=== PATIENT | female | born 1975 | race Caucasian/White ===

== ENCOUNTER 2017-06-14 10:44 | Emergency (ER) | payer MEDICAID, MEDICARE ==
[2017-06-14 10:59] VITALS: BP 131/90
--- NOTE | 2017-06-14 11:14 | EDM.PDOC ---
ED HPI GENERAL MEDICAL PROBLEM - General Chief Complaint: General Stated Complaint: COUGHING UP BLOOD Time Seen by Provider: 06/14/17 11:14 Source of Information: Reports: Patient History Limitations: Reports: No Limitations - History of Present Illness INITIAL COMMENTS - FREE TEXT/NARRATIVE: 41-year-old female presents for evaluation and treatment of a productive cough. Patient reports she is primarily concerned about the cough. Reports that this started 2 weeks ago. She reports that she initially wasn't very concerned as she is a smoker. Normally smokes about half pack a day. Reports that she recently lost her [id number] and has increased now to about a pack a day. She since cut back down to half a pack a day but reports that the coughing continues. She reports that she has been coughing up mucus. Today she became concerned when she coughed up blood in the mucus. no hemoptysis since this earlier incident. Patient denies any fevers. Additionally she reports headaches , body aches and dizziness. She denies any lightheadedness or syncope. Patient also complains of a sore throat. Sates that feels like she is "swallowing razor blades ". She states that she cannot swallow. She has no appetite. Patient also reports she has been having diarrhea about 4 times a day. No melena or hematochezia that she has appreciated. She reports lower abdominal pain, nausea and vomiting. Reports she's vomited a few times over the last 2 weeks. States that she has a history of inflammatory bowel disease. She is also a pain contract. Reports that she frequently alternates between diarrhea and constipation. She did stop taking her magnesium recently due to the recent diarrhea but this has not helped the diarrhea. She is also on Lortabs for chronic neck pain and fibromyalgia. She also reports "kidney pain". She states it feels like she was "kicked by a horse ". No dysuria or hematuria. No recent antibiotic usage. No recent travel. Generalized Pain Score (Numeric/FACES): 8 - Related Data Allergies Allergy/AdvReac Type Severity Reaction Status Date / Time quetiapine fumarate Allergy Agitation Verified 06/14/17 10:59 [From Seroquel] varenicline tartrate Allergy Hallucinati Verified 06/14/17 10:59 [From Chantix] ons propanolol Allergy Hallucinati Uncoded 06/14/17 10:59 ons Home Meds: Home Meds Albuterol Inhaler. 2 puff INH ASDIRECTED 02/27/14 [History] Ibuprofen. 800 mg PO TID 02/27/14 [History] Omeprazole. 20 mg PO DAILY 02/27/14 [History] Rizatriptan. 0 mg PO ASDIRECTED 02/27/14 [History] Voltaren. 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 History: partial hysterectomy Musculoskeletal History: Reports: Neck Pain, Chronic Other Musculoskeletal History: fibromyalgia Neurological History: Reports: Migraines Psychiatric History: Reports: Anxiety, Depression - Infectious Disease History Infectious Disease History: Reports: None - Past Surgical History HEENT Surgical History: Reports: Adenoidectomy, Oral Surgery, Tonsillectomy Social & Family History - Family History Family Medical History: Noncontributory - Tobacco Use Smoking Status *Q: Current Every Day Smoker Years of Tobacco use: 30 Packs/Tins Daily: 0.5 Used Tobacco, but Quit: No Second Hand Smoke Exposure: No - Caffeine Use Caffeine Use: Reports: Coffee, Energy Drinks, Soda, Tea - Alcohol Use Days Per Week of Alcohol Use: 0 - Recreational Drug Use Recreational Drug Use: No ED ROS GENERAL - Review of Systems Review Of Systems: See Below Constitutional: Reports: Decreased Appetite, Other (reports bodyaches). Denies : Fever HEENT: Reports: Throat Pain Respiratory: Reports: Cough, Sputum, Hemoptysis Cardiovascular: Denies: Lightheadedness, Syncope GI/Abdominal: Reports: Abdominal Pain (lower abdomen, bilateral), Diarrhea, Decreased Appetite, Difficulty Swallowing, Nausea, Vomiting (reports a couple times over the last 2 weeks). Denies: Hematochezia, Melena : Denies: Dysuria, Flank Pain, Hematuria Musculoskeletal: Reports: Back Pain (reports kidney pain, states she feels like she was kicked by a horse)) Neurological: Reports: Headache. Denies: Syncope ED EXAM, GENERAL - Physical Exam Exam: See Below Exam Limited By: No Limitations General Appearance: Alert, WD/WN, No Apparent Distress Eye Exam: Bilateral Eye: Normal Inspection Ears: Normal External Exam, Normal Canal, Hearing Grossly Normal, Normal TMs Ear Exam: Bilateral Ear: Auricle Normal, Canal Normal, TM normal Nose: Normal Inspection Throat/Mouth: Normal Inspection, Normal Lips, Normal Teeth, Normal Gums, Normal Oropharynx, Normal Voice, No Airway Compromise Neck: Normal Inspection Respiratory/Chest: No Respiratory Distress, Lungs Clear, Normal Breath Sounds Cardiovascular: Normal Peripheral Pulses, Regular Rate, Rhythm, No Murmur GI/Abdominal: Normal Bowel Sounds, Soft, Non-Tender Neurological: Alert, Oriented, Normal Cognition Psychiatric: Normal Affect, Normal Mood Skin Exam: Warm, Dry, Normal Color Course - Vital Signs Last Recorded V/S: Last Vital Signs Temp 36.8 C 06/14/17 13:12 Pulse 81 06/14/17 13:12 Resp 18 06/14/17 13:12 BP 131/90 06/14/17 10:53 Pulse Ox 98 06/14/17 13:12 - Orders/Labs/Meds Orders: Active Orders 24 hr Category Date Time Status CULTURE STREP A CONFIRMATION [] Stat Lab 06/14/17 11:15 Results Rapid Strep w/culture conf [STREP SCRN A RAPID W CULT Lab 06/14/17 11:15 Results CONF] [] Stat Labs: Laboratory Tests 06/14/17 06/14/17 06/14/17 Range/Units 11:35 11:45 11:45 WBC 14.62 H (3.98-10.04) K/mm3 RBC 4.54 (3.98-5.22) M/mm3 Hgb 14.2 (11.2-15.7) gm/L Hct 42.8 (34.1-44.9) % MCV 94.3 (79.4-94.8) fl MCH 31.3 (25.6-32.2) pg MCHC 33.2 (32.2-35.5) g/dl RDW Std Deviation 47.1 H (36.4-46.3) fL Plt Count 392 H (182-369) K/mm3 MPV 9.1 L (9.4-12.3) fl Neut % (Auto) 74.1 H (34.0-71.1) % Lymph % (Auto) 17.4 L (19.3-51.7) % [place] % (Auto) 6.3 (4.7-12.5) % Eos % (Auto) 1.4 (0.7-5.8) Baso % (Auto) 0.5 (0.1-1.2) % Neut # (Auto) 10.84 H (1.56-6.13) K/mm3 Lymph # (Auto) 2.54 (1.18-3.74) K/mm3 [place] # (Auto) 0.92 H (0.24-0.36) K/mm3 Eos # (Auto) 0.21 (0.04-0.36) K/mm3 Baso # (Auto) 0.07 (0.01-0.08) K/mm3 Sodium 143 (136-145) mEq/L Potassium 4.9 (3.5-5.1) mEq/L Chloride 107 (98-107) mEq/L Carbon Dioxide 28 (21-32) mEq/L Anion Gap 12.9 (5-15) BUN 16 (7-18) mg/dL Creatinine 1.1 H (0.55-1.02) mg/dL Est Cr Clr Drug Dosing 65.45 mL/min Estimated GFR (MDRD) 55 (>60) mL/min BUN/Creatinine Ratio 14.5 (14-18) Glucose 95 (74-106) mg/dL Calcium 9.3 (8.5-10.1) mg/dL Total Bilirubin 0.3 (0.2-1.0) mg/dL AST 10 L (15-37) U/L ALT 19 (14-59) U/L Alkaline Phosphatase 69 (46-116) U/L C-Reactive Protein 1.3 H* (<1.0) mg/dL Total Protein 6.9 (6.4-8.2) g/dl Albumin 3.6 (3.4-5.0) g/dl Globulin 3.3 gm/dL Albumin/Globulin Ratio 1.1 (1-2) Urine Color Yellow (Yellow) Urine Appearance Clear (Clear) Urine pH 7.5 (5.0-8.0) Ur Specific [place] 1.020 (1.005-1.030) Urine Protein Negative (Negative) Urine Glucose (UA) Negative (Negative) Urine Ketones Negative (Negative) Urine Occult Blood Negative (Negative) Urine Nitrite Negative (Negative) Urine Bilirubin Negative (Negative) Urine Urobilinogen 0.2 (0.2-1.0) Ur Leukocyte Esterase Negative (Negative) Urine RBC Not seen (0-5) /hpf Urine WBC Not seen (0-5) /hpf Ur Epithelial Cells 0-5 (0-5) /hpf Urine Bacteria Not seen (FEW) /hpf Urine Mucus Not seen (FEW) /hpf Meds: Medications Discontinued Medications Generic Name Dose Route Start Last Admin Trade Name Freq PRN Reason Stop Dose Admin Al Hydroxide/Mg Hydroxide 30 0 ml 06/14/17 11:28 06/14/17 11:43 ml/ Lidocaine HCl 15 ml PO 06/14/17 11:29 45 ml ONETIME ONE Administration Ondansetron HCl 4 mg 06/14/17 11:28 06/14/17 11:41 Zofran Odt PO 06/14/17 11:29 4 mg ONETIME ONE Administration - Radiology Interpretation Free Text/Narrative:: Chest [address] Walker: Heart size and mediastinum are normal. Lungs are clear with the exception of a slight linear density seen within either the right middle lobe or lingula on the lateral view compatible with slight atelectasis. Slight scoliosis is present. - Re-Assessments/Exams Free Text/Narrative Re-Assessment/Exam: 06/14/17 13:00 I reviewed the x-ray and lab results with the patient. Her strep is negative. Her flu is negative. She did just recently receive a cortisone injection to the neck and shoulders. This could be why her white blood cell count is mildly elevated. I will treat her for bronchitis since it has been 2 weeks of a cough and her symptoms are worsening. We'll start her on azithromycin. Follow-up next week with PCP. Discharge instructions as documented. Departure - Departure Time of Disposition: 13:01 Disposition: Home, Self-Care 01 Condition: Good Clinical Impression: Bronchitis - Discharge Information Prescriptions: Azithromycin [IJD: Azithromycin] 250 mg PO DAILY #6 tab Instructions: Acute Bronchitis, [id number] Referrals: Sorin,Wanda M, DO [Primary Care Provider] - Forms: ED Department Discharge Additional Instructions: Take the azithromycin as prescribed. 2 tabs on day 1 followed by 1 tablet day 2 through 5. Take this medication with food. Follow up with your primary care provider next week for recheck of your symptoms. Continue take the Zofran you have at home for nausea. Recommend taking a probiotic to help reduce the diarrhea. make sure you are drinking plenty of fluids. Recommend bland diet to help reduce the diarrhea. [place] diet recommendations include bread, rice, applesauce , toast, egg whites, soup, etc. Please return to the ER if your symptoms change or worsen. - My Orders Last 24 Hours: My Active Orders 06/14/17 11:15 CULTURE STREP A CONFIRMATION [] Stat Rapid Strep w/culture conf [STREP SCRN A RAPID W CULT CONF] [] Stat - Assessment/Plan Last 24 Hours: My Active Orders 06/14/17 11:15 CULTURE STREP A CONFIRMATION [RM] Stat Rapid Strep w/culture conf [STREP SCRN A RAPID W CULT CONF] [] Stat
[2017-06-14] MEDS ORDERED: Alum Hydrox/Mag Hydrox/Simeth 30 ML, Lidocaine 2% 15 ML PO ONE ×2 (11:28)
[2017-06-14] MEDS ORDERED: Ondansetron 4 MG Tab.DIS PO ONE (11:28)
--- NOTE | 2017-06-14 12:00 | CR ---
Chest: Two views of the chest were obtained. Comparison: Previous portable chest x-ray of 03/08/12. Heart size and mediastinum are normal. Lungs are clear with the exception of a slight linear density seen within either the right middle lobe or lingula on the lateral view compatible with slight atelectasis. Slight scoliosis is present. Impression: 1. Incidental findings. Nothing acute is seen on two-view chest x-ray. Diagnostic code #2
== END 2017-06-14 13:12 | disposition home or self-care (01) ==
LOC: JD.ED 10:44
DX: J40 Bronchitis, not specified as acute or chronic (principal); F17.210 Nicotine dependence, cigarettes, uncomplicated; Z88.8 Allergy status to other drugs, medicaments and biological substances; Z79.899 Other long term (current) drug therapy
CPT/HCPCS: 36415; 71020; 80053; 81001; 85025; 86140; 87081; 87430; 87804; 99284; A9270; 99283

== ENCOUNTER 2018-04-07 17:26 | Emergency (ER) | payer MEDICARE, MEDICAID ==
[2018-04-07 17:38] VITALS: BP 100/70
[2018-04-07] MEDS ORDERED: Acetaminophen 325 MG Tab PO ONE (17:50)
--- NOTE | 2018-04-07 18:30 | EDM.PDOC ---
ED HPI GENERAL MEDICAL PROBLEM - General Chief Complaint: General Stated Complaint: FELL DOWN STEPS MIGHT HAVE BROKEN LEFT/RIGHT FOOT Time Seen by Provider: 04/07/18 17:42 Source of Information: Reports: Patient, RN Notes Reviewed - History of Present Illness INITIAL COMMENTS - FREE TEXT/NARRATIVE: 42-year-old female lost her balance going down some steps. She states she fell down a full flight of about 12 steps injuring right foot and left wrist. She also did hit her right forehead. Was no LOC but she may have been dazed briefly. Does have mild frontal headache at this time. Very mild neck soreness. No major back discomfort. No chest pain or difficulty breathing. There's been no nausea or vomiting. This occurred about 1-1/2 hours ago Left Wrist Pain Score (Numeric/FACES): 10 Right Feet Pain Score (Numeric/FACES): 10 - Related Data Allergies Allergy/AdvReac Type Severity Reaction Status Date / Time quetiapine fumarate Allergy Agitation Verified 04/07/18 17:38 [From Seroquel] varenicline tartrate Allergy Hallucinati Verified 04/07/18 17:38 [From Chantix] ons propanolol Allergy Hallucinati Uncoded 04/07/18 17:38 ons Home Meds: Home Meds Albuterol Inhaler. 2 puff INH ASDIRECTED 02/27/14 [History] Ibuprofen. 800 mg PO TID 02/27/14 [History] Omeprazole. 20 mg PO DAILY 02/27/14 [History] Rizatriptan. 0 mg PO ASDIRECTED 02/27/14 [History] Voltaren. 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 Musculoskeletal History: Reports: Neck Pain, Chronic Other Musculoskeletal History: fibromyalgia Neurological History: Reports: Migraines Psychiatric History: Reports: Anxiety, Depression - Infectious Disease History Infectious Disease History: Reports: None - Past Surgical History HEENT Surgical History: Reports: Adenoidectomy, Oral Surgery, Tonsillectomy Social & Family History - Family History Family Medical History: Noncontributory - Tobacco Use Smoking Status *Q: Current Every Day Smoker Years of Tobacco use: 25 Packs/Tins Daily: 0.5 - Caffeine Use Caffeine Use: Reports: Coffee, Soda - Recreational Drug Use Recreational Drug Use: No ED ROS GENERAL - Review of Systems Review Of Systems: See Below Constitutional: Reports: No Symptoms HEENT: Reports: Other (There is mild bruising of the upper for head) Respiratory: Denies: Shortness of Breath, Pleuritic Chest Pain Cardiovascular: Denies: Chest Pain GI/Abdominal: Denies: Abdominal Pain, Nausea, Vomiting Musculoskeletal: Reports: Neck Pain (For mild soreness posterior neck), Joint Pain (Left wrist and right foot). Denies: Shoulder Pain, Back Pain Skin: Reports: Bruising (Mild bruising upper forehead) Neurological: Reports: Headache (Her mild headache), Difficulty Walking. Denies : Trouble Speaking ED EXAM, GENERAL - Physical Exam Exam: See Below General Appearance: Alert, Mild Distress Eye Exam: Bilateral Eye: PERRL Ears: Normal External Exam Nose: Normal Inspection Throat/Mouth: Normal Inspection Head: Other (Very slight bruising of the upper forehead, no bony tenderness of the head or face) Neck: Supple, Other (Very minimal tenderness posterior neck, minimal soreness with motion) Respiratory/Chest: No Respiratory Distress, Lungs Clear, Normal Breath Sounds Cardiovascular: Regular Rate, Rhythm Back Exam: Other (No bruising or swelling visible). No: Paraspinal Tenderness, Vertebral Tenderness Extremities: Joint Swelling (Is very mild swelling of the left wrist, mild to moderate tenderness of the left wrist both dorsally and volar aspect as well, pain with motion of the wrist, no visible deformity), Other (There is tenderness very mild swelling and bruising of the medial mid right foot, foot otherwise nontender) Neurological: No Motor/Sensory Deficits Skin Exam: Warm, Dry Course - Vital Signs Last Recorded V/S: Last Vital Signs Temp 97.3 F 04/07/18 17:33 Pulse 95 04/07/18 17:33 Resp 16 04/07/18 17:33 BP 100/70 04/07/18 17:33 Pulse Ox 97 04/07/18 17:33 - Orders/Labs/Meds Orders: Active Orders 24 hr Category Date Time Status Foot Comp Min 3V Rt [CR] Stat Exams 04/07/18 17:50 Taken Wrist Comp Min 3V Lt [CR] Stat Exams 04/07/18 17:50 Taken Meds: Medications Discontinued Medications Generic Name Dose Route Start Last Admin Trade Name Chay PRN Reason Stop Dose Admin Acetaminophen 975 mg 04/07/18 17:50 04/07/18 17:56 Tylenol PO 04/07/18 17:51 975 mg NOW ONE Administration - Re-Assessments/Exams Free Text/Narrative Re-Assessment/Exam: 04/07/18 19:01 X-rays of foot and wrist are negative for fracture, head CT not clinically indicated at this time Departure - Departure Time of Disposition: 18:46 Disposition: Home, Self-Care 01 Condition: Fair Clinical Impression: Fall Qualifiers: Encounter type: initial encounter Qualified Code(s): W19.XXXA - Unspecified fall, initial encounter Contusion of left wrist Qualifiers: Encounter type: initial encounter Qualified Code(s): S60.212A - Contusion of left wrist, initial encounter Contusion of right foot Qualifiers: Encounter type: initial encounter Qualified Code(s): S90.31XA - Contusion of right foot, initial encounter - Discharge Information Referrals: Meghan Bradley PA-C [Primary Care Provider] - Forms: ED Department Discharge Additional Instructions: Velcro wrist splint left wrist for comfort and protection, Miguel wrap right foot, use cane as needed for ambulation until pain right foot resolving, icd packs and elevation as needed for swelling, you may take hydrocodone previously prescribed if needed for severe pain. You may also take Aleve 2-3 times daily for additional pain relief and also for inflammation, as symptoms improve then alternate Aleve and Tylenol as needed. Do not take Tylenol and hydrocodone at the same time. Follow-up clinic if not getting back to normal within 5-7 days as expected. - My Orders Last 24 Hours: My Active Orders 04/07/18 17:50 Foot Comp Min 3V Rt [CR] Stat Wrist Comp Min 3V Lt [CR] Stat - Assessment/Plan Last 24 Hours: My Active Orders 04/07/18 17:50 Foot Comp Min 3V Rt [CR] Stat Wrist Comp Min 3V Lt [CR] Stat
--- NOTE | 2018-04-08 07:41 | CR ---
Right foot: Four views of the right foot were obtained. Comparison: No prior study. Joint spaces are preserved. No fracture, dislocation or other bony abnormality is seen. Impression: 1. No abnormality is seen on right foot exam. Diagnostic code #1
--- NOTE | 2018-04-08 07:41 | CR ---
Left wrist: Four views of the left wrist were obtained. Comparison: No prior wrist exam. Soft tissue swelling is identified. Joint spaces are preserved. No fracture, dislocation or other bony abnormality is seen. Impression: 1. Soft tissue swelling. 2. No bony abnormality is seen on left wrist exam. Diagnostic code #2
== END 2018-04-07 18:54 | disposition home or self-care (01) ==
LOC: JD.ED 17:26
DX: S60.212A Contusion of left wrist, initial encounter (principal); S90.31XA Contusion of right foot, initial encounter; F17.210 Nicotine dependence, cigarettes, uncomplicated; Z79.899 Other long term (current) drug therapy; Z88.8 Allergy status to other drugs, medicaments and biological substances; W10.9XXA Fall (on) (from) unspecified stairs and steps, initial encounter
CPT/HCPCS: 73110; 73630; 99283; A9270

== ENCOUNTER 2018-04-14 11:56 | Emergency (ER) | payer MEDICARE, MEDICAID ==
[2018-04-14 12:06] VITALS: BP 126/58
--- NOTE | 2018-04-14 12:27 | EDM.PDOC ---
ED HPI GENERAL MEDICAL PROBLEM - General Chief Complaint: Neurological Problem Stated Complaint: NEUROLOGICAL ISSUES/CONFUSION Time Seen by Provider: 04/14/18 12:04 Source of Information: Reports: Patient History Limitations: Reports: No Limitations - History of Present Illness INITIAL COMMENTS - FREE TEXT/NARRATIVE: Patient is a 42-year-old female presents ED complaining of intermittent confusion and seeing spots at times. With a few episodes of emesis. Last vomiting episode was yesterday. Patient fell down a few stairs approximately 5 days ago. She hit her head causing bruising to her forehead. There was no loss of consciousness. She was seen in the ER and diagnosed with a concussion. Since the injury she's had no unusual headaches. She does have history of chronic migraines and has taken Imitrex which normally resolves headaches. She has no headache with admission to the ED. She is concerned about the vomiting, intermittent vision changes, confusion, maybe related to worsening concussion. She is on no blood thinners and oral control. She denies being . right ankle Pain Score (Numeric/FACES): 3 - Related Data Allergies Allergy/AdvReac Type Severity Reaction Status Date / Time quetiapine fumarate Allergy Agitation Verified 04/14/18 12:06 [From Seroquel] varenicline tartrate Allergy Hallucinati Verified 04/14/18 12:06 [From Chantix] ons propanolol Allergy Hallucinati Uncoded 04/14/18 12:06 ons Home Meds: Home Meds Albuterol Inhaler. 2 puff INH ASDIRECTED 02/27/14 [History] Ibuprofen. 800 mg PO TID 02/27/14 [History] Omeprazole. 20 mg PO DAILY 02/27/14 [History] Rizatriptan. 0 mg PO ASDIRECTED 02/27/14 [History] Voltaren. 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 Musculoskeletal History: Reports: Neck Pain, Chronic Other Musculoskeletal History: fibromyalgia Neurological History: Reports: Migraines Psychiatric History: Reports: Anxiety, Depression - Infectious Disease History Infectious Disease History: Reports: None - Past Surgical History HEENT Surgical History: Reports: Adenoidectomy, Oral Surgery, Tonsillectomy Social & Family History - Family History Family Medical History: Noncontributory - Tobacco Use Smoking Status *Q: Current Every Day Smoker Years of Tobacco use: 20 Packs/Tins Daily: 0.5 - Caffeine Use Caffeine Use: Reports: Coffee - Recreational Drug Use Recreational Drug Use: No ED ROS GENERAL - Review of Systems Review Of Systems: ROS reveals no pertinent complaints other than HPI. ED EXAM, NEURO - Physical Exam Exam: See Below Exam Limited By: No Limitations General Appearance: Alert, WD/WN, No Apparent Distress Eye Exam: Bilateral Eye: EOMI, Nystagmus (non noted), PERRL Ears: Hearing Grossly Normal Nose: Normal Inspection, Normal Mucosa Throat/Mouth: Normal Inspection, Normal Oropharynx, Normal Voice, No Airway Compromise Head Exam: Atraumatic, Normocephalic Neck: Normal Inspection, Supple, Full Range of Motion, Tender Lateral (right side). No: Lymphadenopathy (L), Lymphadenopathy (R), Tender Midline Respiratory/Chest: No Respiratory Distress, Lungs Clear, Normal Breath Sounds, No Accessory Muscle Use, Chest Non-Tender, Decreased Breath Sounds Cardiovascular: Normal Peripheral Pulses, Regular Rate, Rhythm GI/Abdominal: Normal Bowel Sounds, Soft, Non-Tender, No Organomegaly, No Distention Neurological: Alert, Normal Mood/Affect, Normal Dorsiflexion, CN II-XII Intact, Normal Plantar Flexion, Normal Gait, No Motor/Sensory Deficits, Oriented x 3 Back Exam: Normal Inspection. No: Paraspinal Tenderness, Vertebral Tenderness Extremities: Normal Inspection, Normal Range of Motion, Non-Tender, No Pedal Edema, Normal Capillary Refill Psychiatric: Normal Affect, Normal Mood Skin Exam: Warm, Dry, Intact, Normal Color, No Rash Course - Vital Signs Last Recorded V/S: Last Vital Signs Temp 98.5 F 04/14/18 11:58 Pulse 84 04/14/18 11:58 Resp 18 04/14/18 11:58 BP 126/58 L 04/14/18 11:58 Pulse Ox 93 L 04/14/18 11:58 - Re-Assessments/Exams Free Text/Narrative Re-Assessment/Exam: Patient's been having some anterograde amnesia with intermittent vision changes and nausea vomiting. The injury occurred this past Saturday. We'll obtain CT of the head without contrast. CT of the head revealed no evidence acute intracranial findings. At this point no further testing will be obtained. I did discuss the patient with Dr. Tobar and agrees this is most likely postconcussion syndrome. Thus we'll discharge patient home with instructions for concussion treatment. She'll follow-up with her PCP for reevaluation the end of this week. No MRI will be obtained at this time. The patient remained hemodynamically stable while under my care in the E.D. I discussed the concerning symptoms for which to returnto the E.D. with the patient/family. The patient/family verbalized understanding. All questions were answered. Departure - Departure Time of Disposition: 13:35 Disposition: Home, Self-Care 01 Condition: Good Clinical Impression: Postconcussion syndrome - Discharge Information Instructions: Post-Concussion Syndrome Referrals: Meghan Bradley PA-C [Primary Care Provider] - Forms: ED Department Discharge Additional Instructions: Please read the education material for postconcussion syndrome. Follow instructions. Follow-up with PCP in one week for reevaluation. Return back to the ED if you develop any new or worsening symptoms.
--- NOTE | 2018-04-16 12:07 | CT ---
Head CT Technique: Multiple axial sections through the brain were obtained. Intravenous contrast was not utilized. Comparison: No prior intracranial imaging. Findings: Ventricles along the basal cisterns and sulci over the convexities are within normal limits for the patient's age. No abnormal parenchymal densities are seen. No evidence of intracranial hemorrhage. No midline shift or mass effect is seen. No acute calvarial abnormality is seen. Small lucency is noted within the left posterior skull which is felt to be incidental. Minimal mucosal thickening is seen within the anterior left ethmoid sinuses. Impression: 1. Incidental findings as noted above. No acute intracranial abnormality is identified. Diagnostic code #2 I agree with preliminary report from [facility], finalized at 04/14/18, 2:22 PM Central Time
== END 2018-04-14 13:50 | disposition home or self-care (01) ==
LOC: JD.ED 11:56
DX: F07.81 Postconcussional syndrome (principal); J45.909 Unspecified asthma, uncomplicated; F17.210 Nicotine dependence, cigarettes, uncomplicated; Z88.8 Allergy status to other drugs, medicaments and biological substances; Z79.899 Other long term (current) drug therapy
CPT/HCPCS: 70450; 70450-26; 99283; 99284-25

== ENCOUNTER 2019-02-03 15:08 | Emergency (ER) | payer MEDICARE, MEDICAID ==
[2019-02-03 15:23] VITALS: BP 129/73
--- NOTE | 2019-02-03 16:46 | EDM.PDOC ---
ED HPI GENERAL MEDICAL PROBLEM - General Chief Complaint: Chest Pain Stated Complaint: EKG IS IRREGULAR Time Seen by Provider: 02/03/19 16:11 Source of Information: Reports: Patient, RN Notes Reviewed History Limitations: Reports: No Limitations - History of Present Illness INITIAL COMMENTS - FREE TEXT/NARRATIVE: Patient is a 43-year-old female who presents to the ED for the evaluation of chest tightness. Patient did go to the walk-in clinic for this this morning, had an EKG done, and was told that it was irregular, she states that no lab work was done at that time. The walk-in clinic told her she should come to the ER for evaluation. The patient states that she was having worsening chest tightness, and shortness of breath at rest and shortness of breath with exertion. She denies any cardiac history at this time or pulmonary history. The patient states she is a smoker, and has had a cough with some brown productive sputum. The did do a chest x-ray at the walk-in clinic and nothing acute was shown on that as well. The patient notes that she does have a history of anxiety, but feels this is well controlled and does not attribute her chest tightness to the anxiety. The patient's EKG was sent over from the walk-in clinic and shows one singular PVC at that time. Chest Pain Score (Numeric/FACES): 4 - Related Data Allergies Allergy/AdvReac Type Severity Reaction Status Date / Time quetiapine fumarate Allergy Agitation Verified 02/03/19 15:24 [From Seroquel] varenicline tartrate Allergy Hallucinati Verified 02/03/19 15:24 [From Chantix] ons propanolol Allergy Hallucinati Uncoded 02/03/19 15:24 ons Home Meds: Home Meds Albuterol Inhaler. 2 puff INH ASDIRECTED 02/27/14 [History] Ibuprofen. 800 mg PO TID 02/27/14 [History] Omeprazole. 20 mg PO DAILY 02/27/14 [History] Rizatriptan. 0 mg PO ASDIRECTED 02/27/14 [History] Voltaren. 0 mg TOP ASDIRECTED 02/27/14 [History] hydrOXYzine HCl [Atarax] 10 mg PO DAILY 06/14/17 [History] Cyclobenzaprine [Flexeril] 10 mg PO TID PRN 04/14/18 [History] SUMAtriptan [Imitrex] 50 mg PO ASDIRECTED PRN 04/14/18 [History] Past Medical History HEENT History: Reports: Impaired Vision Respiratory History: Reports: Asthma Gastrointestinal History: Reports: Inflammatory Bowel Disease SECURITY INTERN History: Reports: Other SECURITY INTERN History: partial hysterectomy Musculoskeletal History: Reports: Neck Pain, Chronic Other Musculoskeletal History: fibromyalgia Neurological History: Reports: Migraines Psychiatric History: Reports: Anxiety, Depression - Infectious Disease History Infectious Disease History: Reports: None - Past Surgical History HEENT Surgical History: Reports: Adenoidectomy, Oral Surgery, Tonsillectomy Social & Family History - Family History Family Medical History: Noncontributory - Caffeine Use Caffeine Use: Reports: Coffee ED ROS GENERAL - Review of Systems Review Of Systems: See Below Constitutional: Denies: Fever, Chills HEENT: Reports: No Symptoms Respiratory: Reports: Shortness of Breath, Cough Cardiovascular: Reports: Chest Pain (chest tightness) Endocrine: Reports: No Symptoms GI/Abdominal: Reports: No Symptoms : Reports: No Symptoms Musculoskeletal: Reports: No Symptoms Skin: Reports: No Symptoms Neurological: Reports: No Symptoms Psychiatric: Reports: No Symptoms Hematologic/Lymphatic: Reports: No Symptoms Immunologic: Reports: No Symptoms ED EXAM, GENERAL - Physical Exam Exam: See Below Exam Limited By: No Limitations General Appearance: Alert, WD/WN, No Apparent Distress Nose: Normal Inspection Throat/Mouth: Normal Inspection, Normal Lips, Normal Teeth, Normal Gums, Normal Oropharynx, Normal Voice, No Airway Compromise Head: Atraumatic, Normocephalic Respiratory/Chest: No Respiratory Distress, Lungs Clear, No Accessory Muscle Use , Chest Non-Tender, Decreased Breath Sounds (bilaterally) Cardiovascular: Normal Peripheral Pulses, Regular Rate, Rhythm, No Murmur Extremities: Normal Inspection, Normal Capillary Refill Neurological: Alert, Oriented, Normal Cognition, No Motor/Sensory Deficits Psychiatric: Normal Affect, Normal Mood Skin Exam: Warm, Dry, Intact, Normal Color, No Rash EKG INTERPRETATION EKG Date: 02/03/19 Time: 15:26 Rhythm: NSR (sinus tachycardia) Rate (Beats/Min): 103 [place]: Normal P-Wave: Present QRS: Normal ST-T: Normal QT: Normal Comparison: NA - No Prior EKG EKG Interpretation Comments: Reviewed by myself and Dr. Jovel Course - Vital Signs Last Recorded V/S: Last Vital Signs Temp 98.2 F 02/03/19 15:20 Pulse 104 H 02/03/19 15:20 Resp 18 02/03/19 15:20 BP 129/73 02/03/19 15:20 Pulse Ox 95 02/03/19 15:20 - Orders/Labs/Meds Orders: Active Orders 24 hr Category Date Time Status EKG 12 Lead [EKG Documentation Completion] [RC] STAT Care 02/03/19 15:19 Active Labs: Laboratory Tests 02/03/19 02/03/19 Range/Units 15:48 15:48 WBC 8.97 (3.98-10.04) K/mm3 RBC 4.64 (3.98-5.22) M/mm3 Hgb 13.9 (11.2-15.7) gm/L Hct 42.2 (34.1-44.9) % MCV 90.9 D (79.4-94.8) fl MCH 30.0 (25.6-32.2) pg MCHC 32.9 (32.2-35.5) g/dl RDW Std Deviation 48.7 H (36.4-46.3) fL Plt Count 344 (182-369) K/mm3 MPV 9.2 L (9.4-12.3) fl Neut % (Auto) 62.4 (34.0-71.1) % Lymph % (Auto) 29.2 (19.3-51.7) % [place] % (Auto) 6.0 (4.7-12.5) % Eos % (Auto) 1.9 (0.7-5.8) Baso % (Auto) 0.4 (0.1-1.2) % Neut # (Auto) 5.59 (1.56-6.13) K/mm3 Lymph # (Auto) 2.62 (1.18-3.74) K/mm3 [place] # (Auto) 0.54 H (0.24-0.36) K/mm3 Eos # (Auto) 0.17 (0.04-0.36) K/mm3 Baso # (Auto) 0.04 (0.01-0.08) K/mm3 Sodium 142 (136-145) mEq/L Potassium 3.8 (3.5-5.1) mEq/L Chloride 108 H (98-107) mEq/L Carbon Dioxide 21 (21-32) mEq/L Anion Gap 16.8 H (5-15) BUN 12 (7-18) mg/dL Creatinine 1.1 H (0.55-1.02) mg/dL Est Cr Clr Drug Dosing 64.13 mL/min Estimated GFR (MDRD) 54 (>60) mL/min BUN/Creatinine Ratio 10.9 L (14-18) Glucose 109 H (74-106) mg/dL Calcium 9.4 (8.5-10.1) mg/dL Total Bilirubin 0.2 (0.2-1.0) mg/dL AST 10 L (15-37) U/L ALT 21 (14-59) U/L Alkaline Phosphatase 54 (46-116) U/L CK-MB (CK-2) < 0.5 (0-3.6) ng/ml Troponin I < 0.017 (0.00-0.056) ng/mL Total Protein 6.9 (6.4-8.2) g/dl Albumin 3.7 (3.4-5.0) g/dl Globulin 3.2 gm/dL Albumin/Globulin Ratio 1.2 (1-2) - Re-Assessments/Exams Free Text/Narrative Re-Assessment/Exam: 02/03/19 16:48 Patient presents to the ED for reevaluation of an irregular EKG. The patient's cardiac workup is within normal limits at this time. There is no focal abnormalities present other than the one singular PVC on the EKG obtained from the [facility] this morning. The patient is hemodynamically stable this point in time she is still complaining his chest tightness. I did offer to do an albuterol nebulizer with the patient, but she declined as she does not like the way the medicine makes her feel as that makes her somewhat shaky. I did explain to her that stopping smoking might help her chest tightness and cough go away as well. She is understanding of this. Departure - Departure Time of Disposition: 16:49 Disposition: Home, Self-Care 01 Condition: Fair Clinical Impression: Chest tightness, Premature ventricular contraction on electrocardiogram Instructions: Premature Ventricular Contraction Referrals: Meghan Bradley PA-C [Primary Care Provider] - Forms: ED Department Discharge Additional Instructions: You have been evaluated in the ED today for your chest tightness and abnormal EKG findings. The EKG done at our ER was within normal limits, and there was no abnormalities found. The abnormality found on the EKG this morning was a PVC, this is a normal abnormal finding, and is worrisome only when there are multiple PVCs in a row. This was not happening with you. PVCs can happen when a heart is irritated for multiple reasons, some being increased caffeine or decreased oxygen. You have been provided information on PVCs if you should wish to read further into this. Your cardiac workup done in the ER today was also within normal limits. You are not experiencing a heart attack at this ER visit. Recommend that you try to stop smoking, as this might help your cough and chest tightness also resolve. Please return to the ED if your symptoms should change or worsen. - My Orders Last 24 Hours: My Active Orders 02/03/19 15:19 EKG 12 Lead [EKG Documentation Completion] [RC] STAT - Assessment/Plan Last 24 Hours: My Active Orders 02/03/19 15:19 EKG 12 Lead [EKG Documentation Completion] [RC] STAT
== END 2019-02-03 17:10 | disposition home or self-care (01) ==
LOC: JD.ED 15:08
DX: I49.3 Ventricular premature depolarization (principal); F32.9 Major depressive disorder, single episode, unspecified; J45.909 Unspecified asthma, uncomplicated; F41.9 Anxiety disorder, unspecified; Z88.8 Allergy status to other drugs, medicaments and biological substances; Z79.899 Other long term (current) drug therapy
CPT/HCPCS: 36415; 80053; 82553; 84484; 85025; 93005; 99285-25

== ENCOUNTER 2019-06-05 13:50 | Emergency (ER) | payer MEDICARE, MEDICAID ==
--- NOTE | 2019-06-05 14:44 | EDM.PDOC ---
<Ti Gee - Last Filed: 06/05/19 15:04> ED HPI GENERAL MEDICAL PROBLEM - General Chief Complaint: Chest Pain Stated Complaint: CHEST PAIN Time Seen by Provider: 06/05/19 14:18 Source of Information: Reports: Patient History Limitations: Reports: No Limitations - History of Present Illness INITIAL COMMENTS - FREE TEXT/NARRATIVE: Pt is 43yo female presenting to ED today with complaints of malaise. Pt states that last night she started 'not feeling well.' She was feeling well previous to this. She states she had onset of extreme fatigue last night, which worsened acutely this afternoon. She notes chest pain, back pain, and heartburn as her primary symptoms. She notes subjective fever and chills, but did not take her temperature. She is also feeling nauseous and short of breath. She states that this morning she began to have tremors and a sore throat, and felt that her heart was racing and pounding. 3 weeks ago she was diagnosed with bronchitis. She also states that 3 days ago her hands were swollen. She has had no vomiting or diarrhea, no rash, no swelling, no dysuria. She does smoke 0.5ppd Onset: Gradual Onset Date: 06/04/19 Duration: Day(s): Location: Reports: Generalized - Related Data Allergies Allergy/AdvReac Type Severity Reaction Status Date / Time quetiapine fumarate Allergy Agitation Verified 06/05/19 14:00 [From Seroquel] varenicline tartrate Allergy Hallucinati Verified 06/05/19 14:00 [From Chantix] ons propanolol Allergy Hallucinati Uncoded 02/03/19 15:24 ons Home Meds: Home Meds Albuterol Inhaler. 2 puff INH ASDIRECTED 02/27/14 [History] Ibuprofen. 800 mg PO TID 02/27/14 [History] Omeprazole. 20 mg PO DAILY 02/27/14 [History] Rizatriptan. 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 History: partial hysterectomy Musculoskeletal History: Reports: Neck Pain, Chronic Other Musculoskeletal History: fibromyalgia Neurological History: Reports: Migraines Psychiatric History: Reports: Anxiety, Depression - Infectious Disease History Infectious Disease History: Reports: None - Past Surgical History HEENT Surgical History: Reports: Adenoidectomy, Oral Surgery, Tonsillectomy Social & Family History - Family History Family Medical History: Noncontributory - Tobacco Use Smoking Status *Q: Current Every Day Smoker Years of Tobacco use: 30 Packs/Tins Daily: 0.5 - Caffeine Use Caffeine Use: Reports: Soda - Recreational Drug Use Recreational Drug Use: No ED ROS GENERAL - Review of Systems Review Of Systems: See Below Constitutional: Reports: Fever, Chills, Malaise, Fatigue HEENT: Reports: Throat Pain Respiratory: Reports: Shortness of Breath Cardiovascular: Reports: Chest Pain, Palpitations Endocrine: Reports: No Symptoms GI/Abdominal: Reports: Abdominal Pain, Nausea : Reports: No Symptoms Musculoskeletal: Reports: Muscle Pain Skin: Reports: No Symptoms Neurological: Reports: No Symptoms Psychiatric: Reports: No Symptoms Hematologic/Lymphatic: Reports: No Symptoms Immunologic: Reports: No Symptoms ED EXAM, GENERAL - Physical Exam Exam: See Below Exam Limited By: No Limitations General Appearance: Alert, No Apparent Distress Eye Exam: Bilateral Eye: Normal Inspection Ears: Normal External Exam, Normal Canal, Hearing Grossly Normal, Normal TMs Nose: Normal Inspection, Normal Mucosa, No Blood Throat/Mouth: Normal Inspection, Normal Lips, Normal Teeth, Normal Gums, Normal Oropharynx, Normal Voice, No Airway Compromise Head: Atraumatic, Normocephalic Neck: Normal Inspection, Supple, Non-Tender, Full Range of Motion Respiratory/Chest: No Respiratory Distress, Lungs Clear, Normal Breath Sounds, No Accessory Muscle Use, Other (Chest wall pain) Cardiovascular: Normal Peripheral Pulses, No Edema, No Gallop, No JVD, No Murmur , No Rub, Extra Beats GI/Abdominal: Normal Bowel Sounds, Soft, Non-Tender, No Organomegaly, No Distention, No Abnormal Bruit (Female) Exam: Deferred Rectal (Female) Exam: Deferred Back Exam: Normal Inspection, Full Range of Motion Extremities: Normal Inspection, Normal Range of Motion, Non-Tender, No Pedal Edema Neurological: Alert, Oriented, CN II-XII Intact, Normal Cognition, Normal Gait, No Motor/Sensory Deficits Psychiatric: Normal Affect, Anxious Skin Exam: Warm, Dry, Intact, Normal Color, No Rash Lymphatic: No Adenopathy Course - Vital Signs Last Recorded V/S: Last Vital Signs Temp 97.4 F 06/05/19 13:56 Pulse 78 06/05/19 18:04 Resp 14 06/05/19 13:56 BP 130/76 06/05/19 18:04 Pulse Ox 100 06/05/19 13:56 - Orders/Labs/Meds Labs: Laboratory Tests 06/05/19 06/05/19 Range/Units 15:30 15:30 WBC 13.70 H (3.98-10.04) K/mm3 RBC 5.04 (3.98-5.22) M/mm3 Hgb 15.3 (11.2-15.7) gm/dl Hct 46.8 H (34.1-44.9) % MCV 92.9 (79.4-94.8) fl MCH 30.4 (25.6-32.2) pg MCHC 32.7 (32.2-35.5) g/dl RDW Std Deviation 48.3 H (36.4-46.3) fL Plt Count 441 H D (182-369) K/mm3 MPV 9.1 L (9.4-12.3) fl Neut % (Auto) 66.0 (34.0-71.1) % Lymph % (Auto) 28.0 (19.3-51.7) % [place] % (Auto) 4.7 (4.7-12.5) % Eos % (Auto) 0.7 (0.7-5.8) Baso % (Auto) 0.4 (0.1-1.2) % Neut # (Auto) 9.04 H (1.56-6.13) K/mm3 Lymph # (Auto) 3.83 H (1.18-3.74) K/mm3 [place] # (Auto) 0.64 H (0.24-0.36) K/mm3 Eos # (Auto) 0.10 (0.04-0.36) K/mm3 Baso # (Auto) 0.06 (0.01-0.08) K/mm3 Manual Slide Review Sodium 138 (136-145) mEq/L Potassium 4.2 (3.5-5.1) mEq/L Chloride 105 (98-107) mEq/L Carbon Dioxide 24 (21-32) mEq/L Anion Gap 13.2 (5-15) BUN 9 (7-18) mg/dL Creatinine 0.9 (0.55-1.02) mg/dL Est Cr Clr Drug Dosing 78.38 mL/min Estimated GFR (MDRD) > 60 (>60) mL/min BUN/Creatinine Ratio 10.0 L (14-18) Glucose 103 (74-106) mg/dL Calcium 10.0 (8.5-10.1) mg/dL Total Bilirubin 0.2 (0.2-1.0) mg/dL AST 11 L (15-37) U/L ALT 18 (14-59) U/L Alkaline Phosphatase 63 (46-116) U/L Troponin I < 0.017 (0.00-0.056) ng/mL C-Reactive Protein < 0.2 (<1.0) mg/dL Total Protein 7.7 (6.4-8.2) g/dl Albumin 4.1 (3.4-5.0) g/dl Globulin 3.6 gm/dL Albumin/Globulin Ratio 1.1 (1-2) Meds: Medications Discontinued Medications Generic Name Dose Route Start Last Admin Trade Name Freq PRN Reason Stop Dose Admin Dextrose/Sodium Chloride 1,000 mls @ 150 mls/hr 06/05/19 15:15 06/05/19 15:38 Dextrose 5%-1/2 Ns IV 150 mls/hr ASDIRECTED BETTINA Administration Lorazepam 0.5 mg 06/05/19 16:06 06/05/19 16:31 Ativan PO 06/05/19 16:07 0.5 mg ONETIME ONE Administration Metoprolol Tartrate 5 mg 06/05/19 15:07 06/05/19 15:38 Lopressor IVPUSH 06/05/19 15:08 5 mg ONETIME ONE Administration Metoprolol Tartrate 50 mg 06/05/19 16:06 06/05/19 16:31 Lopressor PO 06/05/19 16:07 50 mg ONETIME ONE Administration Metoprolol Tartrate 50 mg 06/05/19 17:50 06/05/19 18:04 Lopressor PO 06/05/19 17:51 50 mg ONETIME ONE Administration Sodium Chloride 10 ml 06/05/19 15:02 06/05/19 15:38 Saline Flush FLUSH 10 ml ASDIRECTED PRN Administration Keep Vein Open Departure - Departure Disposition: Home, Self-Care 01 Clinical Impression: Atypical chest pain, Frequent PVCs Prescriptions: Metoprolol Tartrate [Lopressor] 25 mg PO Q12HR #60 tab Instructions: Premature Ventricular Contraction, Nonspecific Chest Pain, Easy- to-Read Referrals: Meghan Bradley PA-C [Primary Care Provider] - Forms: ED Department Discharge Additional Instructions: Stop the caffeinated supplement, that is very likely contributing strongly to the palpitations and heart irregularity that we are observing today, try stop smoking, continue regular exercise, healthy cardiac diet, [facility] has some good guidelines available for review, get a blood pressure cuff and check your blood pressure heart rate 2-3 times daily as best he can and keep a log. Metropolol 25 mg twice daily for now. Follow up with your regular medical provider in about 5-7 days, call Saturday morning for appointment, return to ED as needed if symptoms worsening in any way. <Dexter Montoya - Last Filed: 06/09/19 17:31> Course - Re-Assessments/Exams Free Text/Narrative Re-Assessment/Exam: 06/09/19 17:30 Initial hx and exam was done by Ranjith Wheeler 3rd year medical student. I also examined and interviewed patient. I agree with the hx and exam as documented. WBC mildly elevated. CXR, other labs normal, discharge instr. as documented. Departure - Departure Time of Disposition: 17:51 Condition: Fair
[2019-06-05] MEDS ORDERED: Sodium Chloride 0.9% 10 ML Syringe FLUSH PRN (15:02)
[2019-06-05] MEDS ORDERED: Metoprolol Tartrate 5 MG/5 ML SDV IVPUSH ONE (15:07)
[2019-06-05] MEDS ORDERED: Dextrose 5%-0.45% NaCl 1,000 ML IV SCH (15:15)
[2019-06-05] MEDS ORDERED: LORazepam 0.5 MG Tab PO ONE (16:06)
[2019-06-05] MEDS ORDERED: Metoprolol Tartrate 50 MG Tab PO ONE ×2 (16:06→17:50)
--- NOTE | 2019-06-05 16:41 | CR ---
Chest: Portable view of the chest was obtained. Comparison: Prior chest x-ray of 06/14/17. Heart size and mediastinum are normal. Lungs are clear. Bony structures are grossly intact. Impression: 1. Nothing acute is seen on portable chest x-ray. Diagnostic code #1
[2019-06-05 18:04] VITALS: BP 130/76; PULSE 78
== END 2019-06-05 18:05 | disposition home or self-care (01) ==
LOC: JD.ED 13:50
DX: I49.3 Ventricular premature depolarization (principal); J45.909 Unspecified asthma, uncomplicated; F41.9 Anxiety disorder, unspecified; F32.9 Major depressive disorder, single episode, unspecified; F17.210 Nicotine dependence, cigarettes, uncomplicated; Z88.8 Allergy status to other drugs, medicaments and biological substances; Z79.899 Other long term (current) drug therapy
CPT/HCPCS: 36415; 71045; 80053; 84484; 85025; 86140; 93005; 96361; 96374; 99285; A9270; J3490; J7042; 93010

== ENCOUNTER 2019-08-03 09:15 | Emergency (ER) | payer MEDICARE, MEDICAID ==
[2019-08-03 09:30] VITALS: BP 126/81; PULSE 102
--- NOTE | 2019-08-03 10:05 | EDM.PDOC ---
<Yari Paz - Last Filed: 08/03/19 10:55> ED HPI GENERAL MEDICAL PROBLEM - General Chief Complaint: Respiratory Problem Stated Complaint: JOINT PAIN/HEADACHE Time Seen by Provider: 08/03/19 09:28 Source of Information: Reports: Patient History Limitations: Reports: No Limitations - History of Present Illness INITIAL COMMENTS - FREE TEXT/NARRATIVE: 43 year old female with complaints of body aches and cough. She states that yesterday she developed a headache and she took a hydrocodone and ibuprofen, but that it did not seem to help. Of note, patient has a history of migraine headaches but that this is not a migraine type of headache. She said that she woke up this morning with generalized body aches and a cough of brown sputum as well as a headache. She is a cigarette smoker. Pt is unsure if she had a flu shot this year or not. She reports feeling feverish and having the chills this morning as well as a right ear ache. Generalized Pain Score (Numeric/FACES): 8 Headache Pain Score (Numeric/FACES): 10 - Related Data Allergies Allergy/AdvReac Type Severity Reaction Status Date / Time quetiapine fumarate Allergy Agitation Verified 08/03/19 09:23 [From Seroquel] varenicline tartrate Allergy Hallucinati Verified 08/03/19 09:23 [From Chantix] ons propanolol Allergy Hallucinati Uncoded 02/03/19 15:24 ons Home Meds: Home Meds Albuterol Inhaler. 2 puff INH ASDIRECTED 02/27/14 [History] Ibuprofen. 800 mg PO TID 02/27/14 [History] Omeprazole. 20 mg PO DAILY 02/27/14 [History] Rizatriptan. 0 mg PO ASDIRECTED 02/27/14 [History] hydrOXYzine HCl [Atarax] 10 mg PO DAILY 06/14/17 [History] Cyclobenzaprine [Flexeril] 10 mg PO TID PRN 04/14/18 [History] SUMAtriptan [Imitrex] 50 mg PO ASDIRECTED PRN 04/14/18 [History] Azithromycin [Zithromax] 250 mg PO DAILY #6 tab 08/03/19 [Rx] Codeine/Promethazine [Phenergan with Codeine] 5 - 10 ml PO Q6HR PRN #300 ml 05/14 [Rx] Losartan [Cozaar] 25 mg PO DAILY 08/03/19 [History] Past Medical History HEENT History: Reports: Impaired Vision Cardiovascular History: Reports: Hypertension Respiratory History: Reports: Asthma, Bronchitis, Recurrent Gastrointestinal History: Reports: Inflammatory Bowel Disease 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 INSPECTOR QUALITY ASSURANCE History: partial hysterectomy Musculoskeletal History: Reports: Neck Pain, Chronic Other Musculoskeletal History: fibromyalgia Neurological History: Reports: Migraines Psychiatric History: Reports: Anxiety, Depression - Infectious Disease History Infectious Disease History: Reports: None - Past Surgical History HEENT Surgical History: Reports: Adenoidectomy, Oral Surgery, Tonsillectomy Social & Family History - Family History Family Medical History: Noncontributory - Tobacco Use Smoking Status *Q: Current Every Day Smoker Years of Tobacco use: 30 Packs/Tins Daily: 0.2 - Caffeine Use Caffeine Use: Reports: None - Recreational Drug Use Recreational Drug Use: No ED ROS GENERAL - Review of Systems Review Of Systems: See Below Constitutional: Reports: Fever, Chills, Malaise. Denies: Diaphoresis HEENT: Reports: Ear Pain (right ear ache). Denies: Rhinitis, Sinus Problem, Throat Pain Respiratory: Reports: Cough, Sputum (brown colored sputum-she is a smoker). Denies: Shortness of Breath, Wheezing, Pleuritic Chest Pain Cardiovascular: Reports: No Symptoms. Denies: Dyspnea on Exertion, Edema, Lightheadedness, Palpitations, Syncope Endocrine: Reports: No Symptoms GI/Abdominal: Reports: No Symptoms. Denies: Diarrhea, Nausea, Vomiting : Reports: No Symptoms Musculoskeletal: Reports: Joint Pain (generalized joint pain-states it feels like someone hit her with a hammer in the wrists and knees), Muscle Pain ( generalized body aches) Skin: Reports: No Symptoms. Denies: Rash Neurological: Reports: Headache (generalized headache). Denies: Syncope Psychiatric: Reports: No Symptoms Hematologic/Lymphatic: Reports: No Symptoms Immunologic: Reports: No Symptoms ED EXAM, GENERAL - Physical Exam Exam: See Below Exam Limited By: No Limitations General Appearance: Alert, WD/WN, No Apparent Distress Ears: Normal External Exam, Normal Canal, Hearing Grossly Normal, Normal TMs Nose: Normal Inspection, Normal Mucosa Throat/Mouth: Normal Inspection, Normal Lips, Normal Teeth, Normal Oropharynx, Normal Voice, No Airway Compromise Head: Atraumatic, Normocephalic Neck: Normal Inspection, Supple, Non-Tender, Full Range of Motion. No: Lymphadenopathy (L), Lymphadenopathy (R) Respiratory/Chest: No Respiratory Distress, Lungs Clear, Normal Breath Sounds, Chest Non-Tender. No: Crackles, Rales, Rhonchi, Wheezing Cardiovascular: Normal Peripheral Pulses, Regular Rate, Rhythm, No Edema, No Murmur GI/Abdominal: Normal Bowel Sounds, Soft, Non-Tender (Female) Exam: Deferred Rectal (Female) Exam: Deferred Back Exam: Normal Inspection, Full Range of Motion Extremities: Normal Inspection, Normal Range of Motion Neurological: Alert, Oriented, Normal Cognition, No Motor/Sensory Deficits Psychiatric: Normal Affect, Normal Mood Skin Exam: Warm, Dry, Intact, Normal Color, No Rash Lymphatic: No Adenopathy Course - Vital Signs Last Recorded V/S: Last Vital Signs Temp 98.5 F 08/03/19 09:26 Pulse 102 H 08/03/19 09:26 Resp 14 08/03/19 09:26 BP 126/81 08/03/19 09:26 Pulse Ox 96 08/03/19 09:26 - Orders/Labs/Meds Orders: Active Orders 24 hr Category Date Time Status Chest 1V Frontal [CR] Stat Exams 08/03/19 10:33 Taken Labs: Laboratory Tests 08/03/19 08/03/19 08/03/19 Range/Units 10:45 10:45 10:45 WBC 8.79 (3.98-10.04) K/mm3 RBC 4.57 (3.98-5.22) M/mm3 Hgb 13.8 D (11.2-15.7) gm/dl Hct 41.9 (34.1-44.9) % MCV 91.7 (79.4-94.8) fl MCH 30.2 (25.6-32.2) pg MCHC 32.9 (32.2-35.5) g/dl RDW Std Deviation 46.8 H (36.4-46.3) fL Plt Count 217 D (182-369) K/mm3 MPV 8.8 L (9.4-12.3) fl Neut % (Auto) 84.8 H (34.0-71.1) % Lymph % (Auto) 6.1 L (19.3-51.7) % Divide % (Auto) 7.1 (4.7-12.5) % Eos % (Auto) 0.6 L (0.7-5.8) Baso % (Auto) 0.3 (0.1-1.2) % Neut # (Auto) 7.45 H (1.56-6.13) K/mm3 Lymph # (Auto) 0.54 L (1.18-3.74) K/mm3 Divide # (Auto) 0.62 H (0.24-0.36) K/mm3 Eos # (Auto) 0.05 (0.04-0.36) K/mm3 Baso # (Auto) 0.03 (0.01-0.08) K/mm3 Manual Slide Review Normal smear Sodium 136 (136-145) mEq/L Potassium 3.4 L (3.5-5.1) mEq/L Chloride 102 (98-107) mEq/L Carbon Dioxide 26 (21-32) mEq/L Anion Gap 11.4 (5-15) BUN 7 (7-18) mg/dL Creatinine 0.9 (0.55-1.02) mg/dL Est Cr Clr Drug Dosing 78.38 mL/min Estimated GFR (MDRD) > 60 (>60) mL/min BUN/Creatinine Ratio 7.8 L (14-18) Glucose 145 H (74-106) mg/dL Calcium 8.4 L D (8.5-10.1) mg/dL Total Bilirubin 1.4 H (0.2-1.0) mg/dL AST 64 H (15-37) U/L ALT 138 H (14-59) U/L Alkaline Phosphatase 132 H (46-116) U/L Total Protein 6.1 L (6.4-8.2) g/dl Albumin 2.8 L (3.4-5.0) g/dl Globulin 3.3 gm/dL Albumin/Globulin Ratio 0.9 L (1-2) Monoscreen Negative (NEGATIVE) - Re-Assessments/Exams Free Text/Narrative Re-Assessment/Exam: 08/03/19 10:[address] Tobar, I have ordered an influenza screen on this patient. 08/03/19 10:55 Influenza screen is negative. I have ordered a CBC, CMP and chest xray. Departure - Departure Disposition: Home, Self-Care 01 Clinical Impression: Bronchitis - Discharge Information Prescriptions: Codeine/Promethazine [Phenergan with Codeine] 5 - 10 ml PO Q6HR PRN #300 ml PRN Reason: Cough Azithromycin [Zithromax] 250 mg PO DAILY #6 tab Referrals: Meghan Bradley PA-C [Primary Care Provider] - 1 Week Forms: ED Department Discharge Additional Instructions: Take the zithromax 2 pills on day 1 and then 1 pill on days 2 through 5. Take the phenergan with codeine 5 to 10mls every 6 hours as needed for your cough. Please return if you are worse. <Bjorn Tobar - Last Filed: 08/03/19 12:19> Course - Re-Assessments/Exams Free Text/Narrative Re-Assessment/Exam: 08/03/19 12:16 I examined the patient myself and I agree with Piotr's assessment and plan. Her influenza was negative so I ordered a CXR and labs. Her CXR looks good. Her CBC is negative. Her glucose is elevated at 145. Her calcium is a little low at 8.4. Her total bili is elevated slightly at 1.4. Her AST is elevated at 64. Her ALT is elevated at 138. Her mono is negative. She has bronchitis. I will get her on a z-lisa and something for the cough. Departure - Departure Time of Disposition: 12:20 Condition: Good - Discharge Information *PRESCRIPTION DRUG MONITORING PROGRAM REVIEWED*: No *COPY OF PRESCRIPTION DRUG MONITORING REPORT IN PATIENT WANDA: No
--- NOTE | 2019-08-03 12:25 | CR ---
Chest: Portable view of the chest was obtained. Comparison: Prior chest x-ray of 06/05/19. Heart size and mediastinum are within normal limits for portable technique. Lungs are clear with no acute parenchymal change. Bony structures are grossly intact. Minimal scoliosis is noted within the spine. Impression: 1. Nothing acute is seen on portable chest x-ray. Diagnostic code #2 This report was dictated in [place] Standard Time
== END 2019-08-03 12:15 | disposition home or self-care (01) ==
LOC: JD.ED 09:15
DX: J40 Bronchitis, not specified as acute or chronic (principal); I10 Essential (primary) hypertension; J45.909 Unspecified asthma, uncomplicated; F17.210 Nicotine dependence, cigarettes, uncomplicated; Z88.8 Allergy status to other drugs, medicaments and biological substances; Z79.899 Other long term (current) drug therapy
CPT/HCPCS: 36415; 71045; 71045-26; 80053; 85025; 86308; 87804; 99283; 99284-25

== ENCOUNTER 2019-12-22 08:51 | Emergency (ER) | payer MEDICARE, MEDICAID ==
[2019-12-22 09:05] VITALS: BP 135/86; PULSE 90
--- NOTE | 2019-12-22 09:15 | EDM.PDOC ---
ED HPI GENERAL MEDICAL PROBLEM - General Chief Complaint: Bite:Animal, Insect Stated Complaint: L CHEEK FACE INJURY Time Seen by Provider: 12/22/19 08:53 Source of Information: Reports: Patient History Limitations: Reports: No Limitations - History of Present Illness INITIAL COMMENTS - FREE TEXT/NARRATIVE: TRIAGE NOTE -- pts dog bit her in the left side of her face. 1cm laceration on left cheek. 0.25cm laceration on cheekbone. pt states shes UTD on tetanus vaccination. pts dog had broke her back and she was repositioning him and he bit her As above. The injury happened a short while before presentation. No treatment prior to arrival. No readily identified specific risk factors. However patient is a smoker and does have some other chronic medical problems. There has been no fever respiratory symptoms or any other symptom of acute medical illness otherwise. Left Face/Facial Pain Score (Numeric/FACES): 1 - Related Data Allergies Allergy/AdvReac Type Severity Reaction Status Date / Time quetiapine fumarate Allergy Severe Agitation Verified 12/22/19 09:05 [From Seroquel] varenicline tartrate Allergy Severe Hallucinati Verified 12/22/19 09:05 [From Chantix] ons propanolol Allergy Severe Hallucinati Uncoded 12/22/19 09:05 ons Home Meds: Home Meds Albuterol Inhaler. 2 puff INH ASDIRECTED 02/27/14 [History] Ibuprofen. 800 mg PO TID 02/27/14 [History] Omeprazole. 20 mg PO DAILY 02/27/14 [History] Rizatriptan. 0 mg PO ASDIRECTED 02/27/14 [History] hydrOXYzine HCl [Atarax] 10 mg PO DAILY 06/14/17 [History] Cyclobenzaprine [Flexeril] 10 mg PO TID PRN 04/14/18 [History] SUMAtriptan [Imitrex] 50 mg PO ASDIRECTED PRN 04/14/18 [History] Azithromycin [Zithromax] 250 mg PO DAILY #6 tab 08/03/19 [Rx] Codeine/Promethazine [Phenergan with Codeine] 5 - 10 ml PO Q6HR PRN #300 ml 05/14 [Rx] Losartan [Cozaar] 25 mg PO DAILY 08/03/19 [History] Past Medical History HEENT History: Reports: Impaired Vision Cardiovascular History: Reports: Hypertension Respiratory History: Reports: Asthma, Bronchitis, Recurrent Gastrointestinal History: Reports: Inflammatory Bowel Disease 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 LADLE BUILDER History: partial hysterectomy Musculoskeletal History: Reports: Neck Pain, Chronic Other Musculoskeletal History: fibromyalgia Neurological History: Reports: Migraines Psychiatric History: Reports: Anxiety, Depression - Infectious Disease History Infectious Disease History: Reports: None - Past Surgical History HEENT Surgical History: Reports: Adenoidectomy, Oral Surgery, Tonsillectomy Social & Family History - Family History Family Medical History: Noncontributory - Tobacco Use Smoking Status *Q: Current Every Day Smoker - Caffeine Use Caffeine Use: Reports: None ED ROS GENERAL - Review of Systems Review Of Systems: Comprehensive ROS is negative, except as noted in HPI. ED EXAM, ANIMAL BITE - Physical Exam Exam: See Below Exam Limited By: No Limitations General Appearance: Alert, WD/WN, No Apparent Distress. No: Anxious Eye Exam: Bilateral Eye: EOMI, PERRL Ears: Normal External Exam Nose: Normal Inspection Throat/Mouth: Normal Inspection Head: Atraumatic, Normocephalic Neck: Normal Inspection, Supple, Non-Tender Respiratory/Chest: No Respiratory Distress, Lungs Clear, Normal Breath Sounds Cardiovascular: Regular Rate, Rhythm, No Edema GI/Abdominal: Soft, Non-Tender Back Exam: Normal Inspection Extremities: Normal Inspection, Non-Tender Neurological: Alert, Oriented, Normal Cognition, No Motor/Sensory Deficits Psychiatric: Normal Affect, Normal Mood Skin Exam: Normal Color, Warm/Dry, Other (Small superficial lacerations left cheek. There is a diagonal superficial laceration less than 1/2 cm with an adjacent tiny punctate laceration adjacent to it. Below this there is another somewhat deeper laceration about 1.7 cm overall through partial thickness of skin though centrally there is a tiny area where subcutaneous fat is visible. No contamination. No foreign body. No sign of infection) Course - Vital Signs Last Recorded V/S: Last Vital Signs Temp 36.4 C 12/22/19 09:00 Pulse 90 12/22/19 09:00 Resp 16 12/22/19 09:00 BP 135/86 12/22/19 09:00 Pulse Ox 97 12/22/19 09:00 - Re-Assessments/Exams Free Text/Narrative Re-Assessment/Exam: 12/22/19 09:32 The facial wounds were uneventfully closed after cleansing and disinfection of the skin. Beads of skin glue were placed on either side of both wounds and Steri-Strips were used for closure with adequate tension on the wound margins for anticipated satisfactory cosmetic healing. Departure - Departure Time of Disposition: 09:34 Disposition: Home, Self-Care 01 Condition: Good Clinical Impression: Superficial laceration of face Face lacerations Qualifiers: Encounter type: initial encounter Qualified Code(s): S01.81XA - Laceration without foreign body of other part of head, initial encounter Dog bite of cheek Qualifiers: Encounter type: initial encounter Laterality: left Qualified Code(s): S01.452A - Open bite of left cheek and temporomandibular area, initial encounter; W54.0XXA - Bitten by dog, initial encounter - Discharge Information Instructions: Animal Bite, Adult, Laceration Care, Adult Referrals: Meghan Bradley PA-C [Primary Care Provider] - Forms: ED Department Discharge Additional Instructions: You have had superficial dog bite lacerations of the left cheek cleansed and closed with a combination of skin glue and Steri-Strips. Antibiotics are usually not required for this kind of injury. An antibiotic is not prescribed. Should there be any pain redness fever discharge return to the ER immediately. The Steri-Strips can stay in place until they start to come off by themselves. Ideally they should be left in place for 5 to 7 days. Report this visit to your primary and arrange follow-up as directed. Sepsis Event Note - Evaluation Sepsis Screening Result: No Definite Risk - Focused Exam Vital Signs: Vital Signs Temp Pulse Resp BP Pulse Ox 12/22/19 09:00 36.4 C 90 16 135/86 97 Date Exam was Performed: 12/22/19 Time Exam was Performed: 09:32
== END 2019-12-22 09:42 | disposition home or self-care (01) ==
LOC: JD.ED 08:51
DX: S01.452A Open bite of left cheek and temporomandibular area, initial encounter (principal); S01.81XA Laceration without foreign body of other part of head, initial encounter; I10 Essential (primary) hypertension; J45.909 Unspecified asthma, uncomplicated; F41.9 Anxiety disorder, unspecified; F32.9 Major depressive disorder, single episode, unspecified; F17.200 Nicotine dependence, unspecified, uncomplicated; Z88.8 Allergy status to other drugs, medicaments and biological substances; Z79.899 Other long term (current) drug therapy; W54.0XXA Bitten by dog, initial encounter
CPT/HCPCS: 12011; 99282; 99283

== ENCOUNTER 2021-03-31 10:43 | Emergency (ER) | payer MEDICARE, MEDICAID ==
[2021-03-31 11:04] VITALS: BP 138/79; PULSE 100
[2021-03-31] MEDS ORDERED: Lidocaine/EPINEPHrine/Tetracaine Soln 1 ML TOP ONE (11:23)
[2021-03-31] MEDS ORDERED: Lidocaine 1% 10 ML MDV INJECT ONE (11:36)
--- NOTE | 2021-03-31 12:07 | EDM.PDOC ---
ED HPI GENERAL MEDICAL PROBLEM - General Chief Complaint: ENT Problem Stated Complaint: EXTERNAL EAR SWELLING X 2 WEEKS Time Seen by Provider: 03/31/21 11:00 Source of Information: Reports: Patient, RN Notes Reviewed History Limitations: Reports: No Limitations - History of Present Illness INITIAL COMMENTS - FREE TEXT/NARRATIVE: Patient is a 45-year-old female presenting to the emergency department with complaints of pain and swelling to her right ear. She reports symptoms began approximately 2 weeks ago. She was seen at the [place] walk-in clinic at that time and started on antibiotic treatment with Keflex which she took for 7 days. She reports that this did not make any change in her condition. She saw her primary care provider, Meghan Bradley, 3 days ago and was diagnosed with cauliflower ear. She was started on prednisone and a referral was sent for a consult with plastic surgery. She reports that about 4 days ago, she was able to open the area up and drain some bloody material from the site. Reports this did improve her discomfort. She has not contacted plastic surgeon to schedule an appointment. Reports pain radiating to her posterior ear and down the lateral aspect of her right neck. She is had no fever or chills. right ear Pain Score (Numeric/FACES): 5 - Related Data Allergies Allergy/AdvReac Type Severity Reaction Status Date / Time quetiapine fumarate Allergy Severe Agitation Verified 03/31/21 11:04 [From Seroquel] varenicline tartrate Allergy Severe Hallucinati Verified 03/31/21 11:04 [From Chantix] ons propanolol Allergy Severe Hallucinati Uncoded 03/31/21 11:04 ons Home Meds: Home Meds Albuterol Inhaler. 2 puff INH ASDIRECTED 02/27/14 [History] Ibuprofen. 800 mg PO TID 02/27/14 [History] Omeprazole. 20 mg PO DAILY 02/27/14 [History] Rizatriptan. 0 mg PO ASDIRECTED 02/27/14 [History] hydrOXYzine HCl [Atarax] 10 mg PO DAILY 06/14/17 [History] Cyclobenzaprine [Flexeril] 10 mg PO TID PRN 04/14/18 [History] SUMAtriptan [Imitrex] 50 mg PO ASDIRECTED PRN 04/14/18 [History] Azithromycin [Zithromax] 250 mg PO DAILY #6 tab 08/03/19 [Rx] Codeine/Promethazine [Phenergan with Codeine] 5 - 10 ml PO Q6HR PRN #300 ml 08/03/19 [Rx] Losartan [Cozaar] 25 mg PO DAILY 08/03/19 [History] Acetaminophen/HYDROcodone [[place] 325-5 MG] 1 tab PO Q6H 05/17/20 [History] Albuterol Sulfate [Proair Digihaler] 90 mcg IH 05/17/20 [History] DULoxetine [Cymbalta] 60 mg PO DAILY 05/17/20 [History] Erenumab-Aooe [Aimovig Autoinjector] 140 mg SQ 05/17/20 [History] Fluticasone Propionate [Flonase] 16 gm .XX 05/17/20 [History] Fluticasone/Salmeterol [Advair 500-50] 1 puff INH BID 05/17/20 [History] Gabapentin [Neurontin] 300 mg PO 05/17/20 [History] Ibuprofen [Motrin] 800 mg PO 05/17/20 [History] Levalbuterol Tartrate [Xopenex HFA] 1 puff INH Q6H 05/17/20 [History] Prazosin HCl [Prazosin] 2 mg PO 05/17/20 [History] Promethazine [Phenergan] 25 mg PO 05/17/20 [History] Sertraline [Zoloft] 100 mg PO DAILY 05/17/20 [History] hydrOXYzine pamoate [Vistaril] 50 mg PO BEDTIME 05/17/20 [History] ondansetron HCL [Zofran] 4 mg PO 05/17/20 [History] tiZANidine [Zanaflex] 4 mg PO Q8H 05/17/20 [History] levoFLOXacin [Levaquin] 750 mg PO DAILY 7 Days #7 tab 03/31/21 [Rx] Past Medical History HEENT History: Reports: Impaired Vision Cardiovascular History: Reports: Hypertension Respiratory History: Reports: Asthma, Bronchitis, Recurrent Gastrointestinal History: Reports: Inflammatory Bowel Disease 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 Musculoskeletal History: Reports: Neck Pain, Chronic Other Musculoskeletal History: fibromyalgia Neurological History: Reports: Migraines Psychiatric History: Reports: Anxiety, Depression - Infectious Disease History Infectious Disease History: Reports: None - Past Surgical History HEENT Surgical History: Reports: Adenoidectomy, Oral Surgery, Tonsillectomy Social & Family History - Family History Family Medical History: No Pertinent Family History - Tobacco Use Tobacco Use Status *Q: Current Every Day Tobacco User Years of Tobacco use: 30 Packs/Tins Daily: 1 - Caffeine Use Caffeine Use: Reports: None - Recreational Drug Use Recreational Drug Use: No ED ROS ENT - Review of Systems Review Of Systems: Comprehensive ROS is negative, except as noted in HPI. ED EXAM, ENT - Physical Exam Exam: See Below Exam Limited By: No Limitations General Appearance: Alert, WD/WN, No Apparent Distress Ears: Normal Canal, Hearing Grossly Normal, Normal TMs, Other (Approximate 2 cm fluctuant area of induration to the right antihelix. No redness, warmth, or drainage. Small scab overlying from patient picking.) Neck: Normal Inspection, Supple, Non-Tender, Full Range of Motion Respiratory/Chest: No Respiratory Distress, Lungs Clear, Normal Breath Sounds, No Accessory Muscle Use, Chest Non-Tender Cardiovascular: Normal Peripheral Pulses, Regular Rate, Rhythm, No Edema, No Gallop, No JVD, No Murmur, No Rub Neurological: Alert, Oriented, CN II-XII Intact, Normal Cognition, Normal Gait, Normal Reflexes, No Motor/Sensory Deficits Psychiatric: Normal Affect, Normal Mood Skin: Warm, Dry, Intact, Normal Color, No Rash ED I&D PROCEDURES - I&D Site: right antihelix Skin prep: Chlorhexidine (Hibiciens), Sterile Drape Local anesthesia - Lidocaine (Xylocaine): Other (topical LET) Area Incised With: Needle (16 Fr IV catheter) Drainage: Other (1 ml serosanguineous fluid) Sterile Dressing: Other (vaseline guaze and folded 4x4. Head wrapped with coban to form pressure dressing) Complications: No Progress/Comments: Risks discussed with patient. Written procedural consent obtained. Course - Vital Signs Last Recorded V/S: Last Vital Signs Temp 97 F 03/31/21 10:59 Pulse 100 03/31/21 10:59 Resp 17 03/31/21 10:59 BP 138/79 03/31/21 10:59 Pulse Ox 98 03/31/21 10:59 - Orders/Labs/Meds Meds: Medications Discontinued Medications Generic Name Dose Route Start Last Admin Trade Name Chay PRMarie Reason Stop Dose Admin Lidocaine HCl 10 ml 03/31/21 11:36 03/31/21 11:41 Lidocaine 1% 10 Ml Mdv INJECT 03/31/21 11:37 10 ml ONETIME ONE Administration Lidocaine/Tetracaine 2 ml 03/31/21 11:23 03/31/21 11:32 Lidocaine/Epinephrine/Tetracaine Soln 1 Ml TOP 03/31/21 11:24 2 ml ONETIME ONE Administration - Re-Assessments/Exams Free Text/Narrative Re-Assessment/Exam: Patient is a 45-year-old female presenting to the emergency department with complaints of pain and swelling to her right antihelix. Reports symptoms began 2 weeks ago. She has completed a course of cephalexin as well as has been taking prednisone for the last few days. Reports no change in her symptoms. She was able to drain fluid out of it at one point and states that that reduces swelling and improved her pain. She has had no fever or chills. On exam, she has an approximate 2 cm area of induration to her right antihelix. There is no redness or warmth of the area. There is a small scabbed area overlying the wound from the patient picking at it. She denies any trauma to the ear. States she just woke up with it 1 day. I have ordered topical let to be applied. I will attempt drainage with 16 German IV catheter and apply pressure dressing. 03/31/21 12:26 Small amount of drainage was able to remove from then area of induration. See procedure notes. Pressure dressing was applied. Patient will be started on Levaquin for treatment of possible infection, however there is no evidence of purulence, redness, or warmth. She should leave the pressure dressing on for 3 days. Recommend follow-up with plastic surgery at their next available visit. If she is unable to get in next week, she should follow-up with her primary care provider early next week. Discussed return precautions. Discharge instructions as documented. Departure - Departure Time of Disposition: 12:29 Disposition: Home, Self-Care 01 Condition: Good Clinical Impression: Cauliflower ear, right ear - Discharge Information *PRESCRIPTION DRUG MONITORING PROGRAM REVIEWED*: No *COPY OF PRESCRIPTION DRUG MONITORING REPORT IN PATIENT WANDA: No Prescriptions: levoFLOXacin [Levaquin] 750 mg PO DAILY 7 Days #7 tab Instructions: Cauliflower Ear Referrals: Meghan Bradley PA-C [Primary Care Provider] - Forms: ED Department Discharge Additional Instructions: You were seen in the emergency department today for pain and swelling to your right ear. Small amount of fluid was able to be drained off using IV catheter. Pressure dressing has been applied. This should stay on for 3 days. You been started on Levaquin for infection prevention. Take this as prescribed. Schedule an appointment with plastic surgery at their next available visit. If you are unable to see them next week, recommend follow-up with your primary care provider early next week to have the site reexamined. You may use Tylenol or ibuprofen as needed for discomfort. Return to ER for any new or worsening symptoms. Sepsis Event Note (ED) - Evaluation Sepsis Screening Result: No Definite Risk - Focused Exam Vital Signs: Vital Signs Temp Pulse Resp BP Pulse Ox 03/31/21 10:59 97 F 100 17 138/79 98
== END 2021-03-31 12:46 | disposition home or self-care (01) ==
LOC: JD.ED 10:43
DX: M95.11 Cauliflower ear, right ear (principal); I10 Essential (primary) hypertension; Z88.8 Allergy status to other drugs, medicaments and biological substances; Z79.899 Other long term (current) drug therapy; Z72.0 Tobacco use
CPT/HCPCS: 10060; 69000; 99282-25; 99283

== ENCOUNTER 2021-09-27 16:46 | Emergency (ER) | payer MEDICARE, MEDICAID ==
[2021-09-27 16:58] VITALS: BP 148/90; PULSE 104
[2021-09-27] MEDS ORDERED: Sodium Chloride 0.9% 10 ML Syringe FLUSH PRN (17:09)
[2021-09-27] MEDS ORDERED: Sodium Chloride 0.9% 1,000 ML IV STA (17:10)
== END 2021-09-27 19:17 | disposition home or self-care (01) ==
LOC: JD.ED 16:46
DX: U07.1 COVID-19 (principal); I10 Essential (primary) hypertension; Z88.4 Allergy status to anesthetic agent; Z88.8 Allergy status to other drugs, medicaments and biological substances; Z79.899 Other long term (current) drug therapy; Z72.0 Tobacco use
CPT/HCPCS: 36415; 71045; 71045-26; 80053; 83735; 84484; 85025; 85379; 86140; 93005; 99285-25

== ENCOUNTER 2022-01-26 02:17 | Emergency (ER) | payer MEDICARE, MEDICAID ==
[2022-01-26] MEDS ORDERED: Sodium Chloride 0.9% 10 ML Syringe FLUSH PRN (02:36)
[2022-01-26] MEDS ORDERED: Sodium Chloride 0.9% 1,000 ML IV SCH (02:45)
[2022-01-26] MEDS ORDERED: Lactated Ringers 1,000 ML IV SCH (04:00)
[2022-01-26 06:57] VITALS: BP 103/59; PULSE 51
[2022-01-26] MEDS ORDERED: Sodium Chloride 0.9% 1,000 ML IV ONE (10:22)
== END 2022-01-26 11:02 | disposition home or self-care (01) ==
LOC: JD.ED 02:17
DX: T43.591A Poisoning by other antipsychotics and neuroleptics, accidental (unintentional), initial encounter (principal); T42.8X1A Poisoning by antiparkinsonism drugs and other central muscle-tone depressants, accidental (unintentional), initial encounter; T44.6X1A Poisoning by alpha-adrenoreceptor antagonists, accidental (unintentional), initial encounter; J45.909 Unspecified asthma, uncomplicated; I10 Essential (primary) hypertension; Z86.16 Personal history of COVID-19; Z79.899 Other long term (current) drug therapy; Z88.5 Allergy status to narcotic agent
CPT/HCPCS: 36415; 80053; 80143; 80179; 80307; 83735; 85025; 93005; 96360; 96361; 99284; J3490; J7030; J7120

== ENCOUNTER 2022-12-31 10:09 | Emergency (ER) | payer MEDICARE, MEDICAID ==
[2022-12-31 14:47] VITALS: BP 120/70; PULSE 79
== END 2022-12-31 13:50 | disposition home or self-care (01) ==
LOC: JD.ED 10:09
DX: Z11.1 Encounter for screening for respiratory tuberculosis (principal); I10 Essential (primary) hypertension; Z88.8 Allergy status to other drugs, medicaments and biological substances; Z86.16 Personal history of COVID-19; Z79.899 Other long term (current) drug therapy; Z72.0 Tobacco use
CPT/HCPCS: 71045; 71045-26; 86480; 99283; 99284

== ENCOUNTER 2023-01-24 15:07 | Emergency (ER) | payer MEDICARE, MEDICAID ==
[2023-01-24 15:24] VITALS: BP 151/78; PULSE 96
[2023-01-24 18:08] LABS: BASOPHILS ABSOLUTE AUTO 0.04 K/mm3 (0.01-0.08); BASOPHILS PERCENT AUTO 0.3 % (0.1-1.2); EOSINOPHILS ABSOLUTE AUTO 0.18 K/mm3 (0.04-0.36); EOSINOPHILS PERCENT AUTO 1.5 (0.7-5.8); HEMATOCRIT 46.7 % (34.1-44.9); HEMOGLOBIN 15.6 gm/dl (11.2-15.7); IMMATURE GRAN ABSOLUTE AUTO 0.02 K/mm3 (0.00-0.10); IMMATURE GRAN PERCENT AUTO 0.2 % (<=1.0); LYMPHOCYTES ABSOLUTE AUTO 3.87 K/mm3 (1.18-3.74); LYMPHOCYTES PERCENT AUTO 31.3 % (19.3-51.7); MEAN CORPUSCULAR HEMOGLOBIN 30.5 pg (25.6-32.2); MEAN CORPUSCULAR HGB CONC 33.4 g/dl (32.2-35.5); MEAN CORPUSCULAR VOLUME 91.2 fl (79.4-94.8); MEAN PLATELET VOLUME 9.3 fl (9.4-12.3); MONOCYTES ABSOLUTE AUTO 0.73 K/mm3 (0.24-0.36); MONOCYTES PERCENT AUTO 5.9 % (4.7-12.5); NEUTROPHILS ABSOLUTE AUTO 7.52 K/mm3 (1.56-6.13); NEUTROPHILS PERCENT AUTO 60.8 % (34.0-71.1); PLATELET COUNT,PLT 380 K/mm3 (182-369); RED BLOOD CELL COUNT 5.12 M/mm3 (3.98-5.22); WHITE BLOOD CELL COUNT,WBC 12.36 K/mm3 (3.98-10.04)
[2023-01-24 18:51] LABS: APPEARANCE,URINE SLT CLOUDY (Clear); BILIRUBIN,URINE NEGATIVE (Negative); COLOR,URINE YELLOW (Yellow); GLUCOSE,URINE NEGATIVE (Negative); KETONES,URINE NEGATIVE (Negative); LEUKOCYTE ESTERASE,URINE TRACE (Negative); NITRITE,URINE NEGATIVE (Negative); OCCULT BLOOD,URINE TRACE-INTACT (Negative); PROTEIN,URINE NEGATIVE (Negative); UROBILINOGEN,URINE 0.2 (0.2-1.0)
[2023-01-24 18:51] LABS: A/G RATIO 1.3 (1-2); ALBUMIN 4.7 g/dl (3.4-5.0); ANION GAP 12.6 (5-15); BILIRUBIN TOTAL 0.5 mg/dL (0.2-1.0); CALCIUM 9.4 mg/dL (8.5-10.1); CREATININE 0.9 mg/dL (0.55-1.02); EST CRCL DRUG DOSING (CG) 75.15 mL/min; POTASSIUM,K 3.6 mEq/L (3.5-5.1); PROTEIN TOTAL,TP 8.3 g/dl (6.4-8.2)
[2023-01-24 19:31] LABS: BACTERIA,URINE RARE /hpf (FEW); MUCUS,URINE NOT SEEN /hpf (FEW); RBC,URINE 0-5 /hpf (0-5); SQUAMOUS EPITHELIAL CELLS,UR 0-5 /hpf (0-5); WBC,URINE 0-5 /hpf (0-5)
== END 2023-01-24 20:15 | disposition left against medical advice (07) ==
LOC: JD.ED 15:07
DX: A15.9 Respiratory tuberculosis unspecified (principal); I10 Essential (primary) hypertension; J45.909 Unspecified asthma, uncomplicated; F17.210 Nicotine dependence, cigarettes, uncomplicated; Z86.16 Personal history of COVID-19; Z79.899 Other long term (current) drug therapy; Z88.8 Allergy status to other drugs, medicaments and biological substances; Z88.4 Allergy status to anesthetic agent
CPT/HCPCS: 36415; 71045; 71045-26; 80053; 81001; 85025; 86480; 87040; 87086; 99283

== ENCOUNTER 2023-07-20 01:06 | Emergency (ER) | payer MEDICARE, MEDICAID ==
[2023-07-20] MEDS ORDERED: Ondansetron 4 MG/2 ML SDV IVPUSH ONE (01:39)
[2023-07-20] MEDS ORDERED: Sodium Chloride 0.9% 10 ML Syringe FLUSH PRN (01:39)
[2023-07-20] MEDS ORDERED: HYDROmorphone 0.5 MG/0.5 ML Syringe IVPUSH ONE (01:41)
[2023-07-20] MEDS ORDERED: Sodium Chloride 0.9% 1,000 ML IV SCH (01:45)
[2023-07-20 02:08] LABS: BASOPHILS PERCENT AUTO 0.4 % (0.0-1.0); EOSINOPHILS ABSOLUTE AUTO 0.2 K/mm3 (0.0-0.4); EOSINOPHILS PERCENT AUTO 3.3 % (0.0-6.0); HEMOGLOBIN 13.3 gm/dl (12.0-16.0); IMMATURE GRAN ABSOLUTE AUTO 0.02 K/mm3 (0.00-0.05); IMMATURE GRAN PERCENT AUTO 0.3 % (0.0-0.4); LYMPHOCYTES ABSOLUTE AUTO 0.4 K/mm3 (1.0-4.8); LYMPHOCYTES PERCENT AUTO 4.9 % (24.0-44.0); MEAN CORPUSCULAR HEMOGLOBIN 32.1 pg (28.0-32.0); MEAN CORPUSCULAR HGB CONC 34.1 g/dl (32.0-36.0); MEAN CORPUSCULAR VOLUME 94.2 fl (83.0-99.0); MEAN PLATELET VOLUME 9.4 fl (9.4-12.3); MONOCYTES ABSOLUTE AUTO 0.3 K/mm3 (0.0-0.8); MONOCYTES PERCENT AUTO 4.2 % (0.0-8.0); NEUTROPHILS ABSOLUTE AUTO 6.4 K/mm3 (1.8-7.7); NEUTROPHILS PERCENT AUTO 86.9 % (41.0-71.0); PLATELET COUNT,PLT 216 K/mm3 (150-400); RED BLOOD CELL COUNT 4.14 M/mm3 (4.10-5.30); WHITE BLOOD CELL COUNT,WBC 7.33 K/mm3 (3.9-11.3)
[2023-07-20 02:13] LABS: APPEARANCE,URINE CLEAR (Clear); BILIRUBIN,URINE NEGATIVE (Negative); COLOR,URINE YELLOW (Yellow); GLUCOSE,URINE NEGATIVE (Negative); KETONES,URINE NEGATIVE (Negative); LEUKOCYTE ESTERASE,URINE NEGATIVE (Negative); NITRITE,URINE NEGATIVE (Negative); OCCULT BLOOD,URINE TRACE-LYSED (Negative); PH,URINE 6.5 (5.0-8.0); PROTEIN,URINE NEGATIVE (Negative)
[2023-07-20 02:27] LABS: BACTERIA,URINE FEW /hpf (FEW); RENAL EPITHELIAL CELLS,URINE 0-5 /hpf (0-5); SQUAMOUS EPITHELIAL CELLS,UR 0-5 /hpf (0-5); WBC,URINE 0-5 /hpf (0-5)
[2023-07-20 02:28] LABS: AMORPHOUS SEDIMENT,URINE FEW /hpf (NOT SEEN); MUCUS,URINE NOT SEEN /hpf (FEW)
[2023-07-20 02:29] LABS: HEMOGLOBIN A1C 5.5 %
[2023-07-20 02:39] LABS: A/G RATIO 0.8 (1-2); ALANINE AMINOTRANSFERASE,ALT 212 U/L (14-59); ALBUMIN 2.7 g/dl (3.4-5.0); ALKALINE PHOSPHATASE 127 U/L (46-116); ANION GAP 15.6 (5-15); ASPARTATE AMNIOTRANSFERASE,AST 116 U/L (15-37); BILIRUBIN TOTAL 1.2 mg/dL (0.2-1.0); BLOOD UREA NITROGEN,BUN 10 mg/dL (7-18); BUN/CREATININE RATIO 11.1 (14-18); C-REACTIVE PROTEIN 11.4 mg/dL (<1.0); CALCIUM 8.3 mg/dL (8.5-10.1); CARBON DIOXIDE,CO2 22 mEq/L (21-32); CHLORIDE,CL 100 mEq/L (98-107); CREATININE 0.9 mg/dL (0.55-1.02); EST CRCL DRUG DOSING (CG) 75.15 mL/min; ESTIMATED GFR 79 mL/min (>60); GLUCOSE RANDOM 182 mg/dL (70-99); LIPASE 29 U/L (16-77); POTASSIUM,K 3.6 mEq/L (3.5-5.1); SODIUM,NA 134 mEq/L (136-145)
[2023-07-20 02:40] LABS: TROPONIN I HIGH SENSITIVITY < 4 pg/mL (<=51)
[2023-07-20 02:45] LABS: CORONAVIRUS COVID-19 NAA NEGATIVE (NEGATIVE); INFLUENZA A NAA NEGATIVE (NEGATIVE); RESPIRATORY SYNCYTIAL VIR NAA NEGATIVE (NEGATIVE)
[2023-07-20 03:39] LABS: HEPATITIS C AB NEGATIVE (NEGATIVE)
[2023-07-20] MEDS ORDERED: fentaNYL 100 MCG/2 ML SDV IVPUSH ONE (03:42)
[2023-07-20 04:03] LABS: OSMOLALITY,SERUM 278 mosm/kg (280-300)
[2023-07-20 04:44] VITALS: BP 100/59; PULSE 90
[2023-07-22 08:16] LABS: HEPATITIS B SURFACE AG NONREACTIVE (NONREACTIVE)
== END 2023-07-20 04:05 | disposition home or self-care (01) ==
LOC: JD.ED 01:06
DX: N30.90 Cystitis, unspecified without hematuria (principal); B34.9 Viral infection, unspecified; R94.5 Abnormal results of liver function studies; J45.909 Unspecified asthma, uncomplicated; F17.210 Nicotine dependence, cigarettes, uncomplicated; Z86.16 Personal history of COVID-19; Z90.710 Acquired absence of both cervix and uterus; Z20.822 Contact with and (suspected) exposure to COVID-19; Z79.899 Other long term (current) drug therapy; Z88.8 Allergy status to other drugs, medicaments and biological substances
CPT/HCPCS: 0241U; 36415; 71045; 71045-26; 74176; 74176-26; 80053; 81001; 82010; 82800; 83036; 83605; 83690; 83930; 84484; 85025; 86140; 86308; 86803; 87340; 93005; 93010; 96361; 96374; 96375; 99284; 99284-25; J1170; J2405; J3010; J7030

== ENCOUNTER 2025-01-20 09:54 | Day surgery (SDC) | payer MEDICARE, MEDICAID ==
[2025-01-20] MEDS ORDERED: propofoL 500 MG/50 ML 0 ML ONE (10:08)
[2025-01-20] MEDS ORDERED: Lidocaine 1% 4 ML ONE (10:08)
[2025-01-20] MEDS ORDERED: Midazolam 1 MG/ML 2 ML SDV ONE (10:08)
[2025-01-20] MEDS: Lactated Ringers 1,000 ML IV SCH (10:15)
[2025-01-20] MEDS ORDERED: Propofol 200 MG/20 ML SDV ONE ×2 (11:35→11:45)
[2025-01-20 13:38] VITALS: BP 111/73; PULSE 63
== END 2025-01-20 12:32 | disposition home or self-care (01) ==
LOC: JD.SDS 09:54
PROVIDERS: ATTEND Surgery
DX: K21.01 Gastro-esophageal reflux disease with esophagitis, with bleeding (principal); J44.9 Chronic obstructive pulmonary disease, unspecified; F33.9 Major depressive disorder, recurrent, unspecified; J45.30 Mild persistent asthma, uncomplicated; I25.10 Atherosclerotic heart disease of native coronary artery without angina pectoris; I10 Essential (primary) hypertension; E78.5 Hyperlipidemia, unspecified; F17.210 Nicotine dependence, cigarettes, uncomplicated; Z79.899 Other long term (current) drug therapy; Z88.8 Allergy status to other drugs, medicaments and biological substances
CPT/HCPCS: 43239; J2003; J2250; J2704; J7120; 00813

== ENCOUNTER 2025-02-02 15:51 | Emergency (ER) | payer MEDICARE, MEDICAID ==
[2025-02-02 16:21] LABS: BASOPHILS ABSOLUTE AUTO 0.1 K/mm3 (0.0-0.2); BASOPHILS PERCENT AUTO 0.6 % (0.0-1.0); EOSINOPHILS ABSOLUTE AUTO 0.2 K/mm3 (0.0-0.4); EOSINOPHILS PERCENT AUTO 2.3 % (0.0-6.0); HEMATOCRIT 40.1 % (37.0-47.0); HEMOGLOBIN 13.5 gm/dl (12.0-16.0); IMMATURE GRAN ABSOLUTE AUTO 0.03 K/mm3 (0.00-0.05); IMMATURE GRAN PERCENT AUTO 0.3 % (0.0-0.4); LYMPHOCYTES ABSOLUTE AUTO 2.9 K/mm3 (1.0-4.8); LYMPHOCYTES PERCENT AUTO 27.1 % (24.0-44.0); MEAN CORPUSCULAR HEMOGLOBIN 31.3 pg (28.0-32.0); MEAN CORPUSCULAR HGB CONC 33.7 g/dl (32.0-36.0); MEAN CORPUSCULAR VOLUME 92.8 fl (83.0-99.0); MEAN PLATELET VOLUME 9.3 fl (9.4-12.3); MONOCYTES ABSOLUTE AUTO 0.6 K/mm3 (0.0-0.8); MONOCYTES PERCENT AUTO 5.2 % (0.0-8.0); NEUTROPHILS ABSOLUTE AUTO 6.8 K/mm3 (1.8-7.7); NEUTROPHILS PERCENT AUTO 64.5 % (41.0-71.0); PLATELET COUNT,PLT 300 K/mm3 (150-400); RED BLOOD CELL COUNT 4.32 M/mm3 (4.10-5.30); WHITE BLOOD CELL COUNT,WBC 10.59 K/mm3 (3.9-11.3)
[2025-02-02 16:38] LABS: D-DIMER QUANTITATIVE 0.4 mg/L (0.19-0.50); INR 0.94
[2025-02-02 16:39] LABS: PTT,PARTIAL THROMBOPLSTIN TIME 24.5 SECONDS (21.7-31.4)
[2025-02-02 16:50] LABS: A/G RATIO 1.2 (1-2); ALBUMIN 3.6 g/dl (3.4-5.0); ANION GAP 11.3 (5-15); BILIRUBIN TOTAL 0.3 mg/dL (0.2-1.0); BUN/CREATININE RATIO 8.9 (14-18); CALCIUM 9.1 mg/dL (8.5-10.1); CREATININE 0.9 mg/dL (0.55-1.02); EST CRCL DRUG DOSING (CG) 73.53 mL/min; MAGNESIUM 2.1 mg/dL (1.8-2.4); POTASSIUM,K 4.3 mEq/L (3.5-5.1); PROTEIN TOTAL,TP 6.7 g/dl (6.4-8.2)
[2025-02-02 18:20] VITALS: BP 130/88; PULSE 60
== END 2025-02-02 18:05 ==
LOC: JD.ED 15:51
DX: R07.89 Other chest pain (principal); R06.02 Shortness of breath; R79.89 Other specified abnormal findings of blood chemistry; I10 Essential (primary) hypertension; J45.909 Unspecified asthma, uncomplicated; F17.200 Nicotine dependence, unspecified, uncomplicated; Z88.8 Allergy status to other drugs, medicaments and biological substances; Z79.899 Other long term (current) drug therapy; Z86.16 Personal history of COVID-19
CPT/HCPCS: 36415; 71045; 71045-26; 80053; 83735; 83880; 84484; 85025; 85379; 85610; 85730; 93005; 93010; 99284; 99285

== ENCOUNTER 2025-04-17 17:57 | Emergency (ER) | payer MEDICARE, MEDICAID ==
[2025-04-17] MEDS ORDERED: Naloxone 0.4 MG/ML SDV IVPUSH PRN (19:39)
[2025-04-17 19:57] VITALS: BP 104/60; PULSE 68
== END 2025-04-17 20:08 | disposition home or self-care (01) ==
LOC: JD.ED 17:57
DX: M25.512 Pain in left shoulder (principal); I10 Essential (primary) hypertension; Z86.16 Personal history of COVID-19; F17.210 Nicotine dependence, cigarettes, uncomplicated; Z88.8 Allergy status to other drugs, medicaments and biological substances; Z79.899 Other long term (current) drug therapy
CPT/HCPCS: 73030-26-LT; 73030-LT; 96372; 99283; J1171

== ENCOUNTER 2025-07-06 08:18 | Emergency (ER) | payer MEDICARE, MEDICAID ==
[2025-07-06 08:41] VITALS: PULSE 79
[2025-07-06] MEDS ORDERED: Sodium Chloride 0.9% 10 ML Syringe FLUSH PRN (08:58)
[2025-07-06 09:18] LABS: BASOPHILS ABSOLUTE AUTO 0.1 K/mm3 (0.0-0.2); BASOPHILS PERCENT AUTO 1.0 % (0.0-1.0); EOSINOPHILS ABSOLUTE AUTO 0.2 K/mm3 (0.0-0.4); EOSINOPHILS PERCENT AUTO 3.0 % (0.0-6.0); IMMATURE GRAN ABSOLUTE AUTO 0.01 K/mm3 (0.00-0.05); IMMATURE GRAN PERCENT AUTO 0.1 % (0.0-0.4); LYMPHOCYTES ABSOLUTE AUTO 2.3 K/mm3 (1.0-4.8); LYMPHOCYTES PERCENT AUTO 32.9 % (24.0-44.0); MEAN PLATELET VOLUME 9.3 fl (9.4-12.3); MONOCYTES ABSOLUTE AUTO 0.4 K/mm3 (0.0-0.8); MONOCYTES PERCENT AUTO 6.1 % (0.0-8.0); NEUTROPHILS ABSOLUTE AUTO 3.9 K/mm3 (1.8-7.7); NEUTROPHILS PERCENT AUTO 56.9 % (41.0-71.0); NRBC ABSOLUTE 0.00 (0.00-0.02); NRBC PERCENT 0.0 % (0.0-0.2); PLATELET COUNT,PLT 337 K/mm3 (150-400); RED BLOOD CELL COUNT 4.52 M/mm3 (4.10-5.30); WHITE BLOOD CELL COUNT,WBC 6.93 K/mm3 (3.9-11.3)
[2025-07-06 09:41] LABS: A/G RATIO 1.1 (1-2); ALANINE AMINOTRANSFERASE,ALT 31 U/L (14-59); ASPARTATE AMNIOTRANSFERASE,AST 19 U/L (15-37); BILIRUBIN TOTAL 0.4 mg/dL (0.2-1.0); BLOOD UREA NITROGEN,BUN 7 mg/dL (7-18); CARBON DIOXIDE,CO2 26 mEq/L (21-32); CHLORIDE,CL 107 mEq/L (98-107); CREATINE KINASE,CK 67 U/L (26-192); CREATININE 1.0 mg/dL (0.55-1.02); EST CRCL DRUG DOSING (CG) 66.18 mL/min; ESTIMATED GFR 69 mL/min (>60); GLUCOSE RANDOM 193 mg/dL (70-99); POTASSIUM,K 3.6 mEq/L (3.5-5.1); PROTEIN TOTAL,TP 6.8 g/dl (6.4-8.2); SODIUM,NA 143 mEq/L (136-145)
[2025-07-06] MEDS: Sodium Chloride 0.9% 10 ML Syringe FLUSH ONE (09:49)
[2025-07-06] MEDS: Iopamidol 755 Mg/ML 100 ML Bottle IVPUSH ONE (09:49)
[2025-07-06 09:58] LABS: TROPONIN I HIGH SENSITIVITY < 4 pg/mL (<=51)
[2025-07-06 10:03] LABS: CORONAVIRUS COVID-19 NAA NEGATIVE (NEGATIVE); INFLUENZA A NAA NEGATIVE (NEGATIVE); RESPIRATORY SYNCYTIAL VIR NAA NEGATIVE (NEGATIVE)
[2025-07-06] MEDS: Sodium Chloride 0.9% 10 ML Syringe FLUSH SCH (11:15)
[2025-07-06] MEDS: Gadobenate Dimeglumine 529 MG/ML 20 ML SDV IVPUSH ONE (11:15)
[2025-07-06 13:46] LABS: APPEARANCE,URINE CLEAR (Clear); GLUCOSE,URINE NEGATIVE (Negative); OCCULT BLOOD,URINE NEGATIVE (Negative)
[2025-07-06 15:44] VITALS: BP 130/97
== END 2025-07-06 15:30 | disposition left against medical advice (07) ==
LOC: JD.ED 08:18
DX: J18.9 Pneumonia, unspecified organism (principal); R73.9 Hyperglycemia, unspecified; R20.2 Paresthesia of skin; R94.31 Abnormal electrocardiogram [ECG] [EKG]; I10 Essential (primary) hypertension; J45.909 Unspecified asthma, uncomplicated; F17.200 Nicotine dependence, unspecified, uncomplicated; Z90.710 Acquired absence of both cervix and uterus; Z88.8 Allergy status to other drugs, medicaments and biological substances; Z79.899 Other long term (current) drug therapy; Z53.29 Procedure and treatment not carried out because of patient's decision for other reasons
CPT/HCPCS: 36415; 71275; 71275-26; 72125; 72125-26; 72156; 72156-26; 80053; 81003; 82550; 83690; 83880; 84484; 84703; 85025; 87040; 87637; 93005; 93010; 96361; 96374; 99284; 99285-25; A9270-GY; A9577; J1171; J7030; Q9967